=== PATIENT | female | born 2005 | race Caucasian/White ===

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

== ENCOUNTER → 2023-01-21 09:32 | Outpatient (CLI) | payer OTHER, SELFPAY ==
--- NOTE | ~2023-01-21 | US_ITS ---
US breast LT complete DATE: 01/21/2023 10:04 INDICATION: Left breast lump for 1.5 months TECHNIQUE: Real-time imaging of the complete left breast including all 4 quadrants and subareolar are as was performed. COMPARISON: None FINDINGS: No suspicious mass or shadowing is detected. No cyst is identified. IMPRESSION: BI-RADS Category 1: Negative Reviewed, dictated and finalized at [facility]. Reviewed, dictated and finalized at location [facility]. LOGIST
== END ==
PROVIDERS: PCP Nurse Practitioner Obstetrics & Gynecology; Visit Provider Nurse Practitioner Obstetrics & Gynecology
DX: N63.20 Unspecified lump in the left breast, unspecified quadrant (principal)
CPT/HCPCS: 76641

== ENCOUNTER 2024-11-22 12:59 | Emergency (ER) | payer OTHER, SELFPAY ==
[2024-11-22 13:02] VITALS: BP 122/61; PULSE 102; RESP 24; TEMP 36.6; O2SAT 100
--- NOTE | 2024-11-22 13:59 | PC.NURSE ---
Patient ambulated out of department with steady gate due to wait time.
--- OUTSIDE RECORDS SUMMARY | 2024-11-29 10:29 | XMS_ITS | Data Portability ---
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 Plan of Treatment Reminders Order Date Submit Date Provider Last Modified By Organization Details Last Modified Time Details Appointments None recorded . Lab CMP, serum or plasma 2021 [facility], [address] [place] [address], [facility] [address], [place], [address], 07:37:51 CBC w/ auto diff 2021 [facility], [address] [place] [address], [facility] [address], [place], [address], 07:37:52 amylase + lipase, serum 2021 [facility], [address] [place] [address], [facility] [address], [place], [address], 07:37:53 hepatic function panel, serum 2021 [facility], [address] [place] [address], [address], [place], [address], 07:37:52 rapid strep group A, throat 12/21/ 2022 12/21/2 022 KENDR[facility] In-Office Order, Internal Use Only DO Not Attach Compendium DO Not Attach Compendium, Do Not Delete/merge, [id number] 2 16:57:18 rapid strep group A, throat 2022 023 [facility] Order, Internal Use Only DO Not Attach Compendium DO Not Attach Compendium, Do Not Delete/merge, [id number] 3 16:07:54 HbA1c (hemoglo bin A1c), blood 2023 024 [facility], [address] [facility], [address], [place], [address], 4 09:14:12 TSH, ultra-se nsitive, serum 2023 024 [facility], [address], [address], [place], [address], 4 09:14:11 CMP, serum or plasma 2023 024 [facility], [address], [address], [place], [address], 4 09:14:09 lipid panel, serum 2023 024 [facility], [address], [address], [place], [address], 4 09:14:08 CBC 2023 024 [facility], [address], [address], [place], [address], 4 09:14:13 Referral plastic surgeon referral 2022 023 KENDRA Haley MD, [address] [facility] , [address], [place], [address], 3 14:51:50 Procedures None recorded . Surgeries None recorded . Imaging None recorded . Medication Orders amoxicil aminata 500 mg capsule [address] [facility][id number], [address] [place], [place], [id number], 14:09:33 amoxicil aminata 500 [address] capsule [address] [facility][id number], [address] [place], [place], [id number], 14:09:33 Patient TargetsNo targets recorded. Patient Instructions Encounter Date Encounter Id Patient Instructions Last Modified By Organization Details Last Modified Time 08/31/2022 [id number] abdominal pain: care [facility] Not available 08/31/2022 15:43:21 11/11/2022 [id number] strep throat: care instructions [facility] Not available 11/11/2022 16:34:05 06/04/2023 [id number] strep throat: care [facility] Not available 06/04/2023 16:07:54 09/13/2024 [id number] learning about vaping Not available 09/13/2024 14:34:05 Increase intake of fresh fruits,?? and vegetables. Avoid packaged foods and fast foods. ?? Follow a low salt diet, drink at least 8-10 8oz glasses of water a day, exercise most days of the week. Take all medications as prescribed. Keep appointments with PCP and all specialists. Not available 09/13/2024 14:33:06 dwp labs needed, plan pending results Not available 09/13/2024 14:33:13 Reason for Referral Plastic Surgeon Referral for Ear-lobe keloid Referring Physician: Drew Reilly, Pediatric Medicine, Encounter Date: 01/01/2023 Results Created Date Observation Date Name Description Value Unit Range Abnormal Flag Note LastModifiedBy Organization Detail LastModifiedTime 09/03/2009/04/2022 COMP. METAB OLIC PANEL (14) glucose 88 mg/dL 70-99 Ple ase note refer ence inter bryan royal e Not Available [facility] ([facility]) [address] [facility], [place], [address], 09/04/2022 07:37:51 09/03/20 22 09/04/2022 COMP. METAB OLIC PANEL (14) BUN 9 mg/dL 6-20 Not Available [facility] ([facility]) [address] [facility], [place], [address], 09/04/2022 07:37:51 09/03/20 22 09/04/2022 COMP. METAB OLIC PANEL (14) creatinine 0.67 mg/dL 0.57-1 .00 Not Available [facility] ([facility]) [address] [facility] [place], [address], 09/04/2022 07:37:51 09/03/20 22 09/04/2022 COMP. METAB OLIC PANEL (14) BUN/creatini ne ratio 13 9-23 Not Available [facility] ([facility]) [address] [facility], [place], [address], 09/04/2022 07:37:51 09/03/20 22 09/04/2022 COMP. METAB OLIC PANEL (14) sodium 139 mmol/ L 134-14 4 Not Available [facility] ([facility]) [address] [facility], [place], [address], 09/04/2022 07:37:51 09/03/20 22 09/04/2022 COMP. METAB OLIC PANEL (14) potassium 3.8 mmol/ L 3.5-5. 2 Not Available [facility] ([facility]) [address] [facility] [place], [address], 09/04/2022 07:37:51 09/03/20 22 09/04/2022 COMP. METAB OLIC PANEL (14) chloride 100 mmol/ L 96-106 Not Available [facility] ([facility]) [address] [facility] [place], [address], 09/04/2022 07:37:51 09/03/20 09/04/2022 COMP. METAB OLIC PANEL (14) carbon dioxide, total 24 mmol/ L 20-29 Not Available [facility] ([facility]) [address] [facility], [place], [address], 09/04/2022 07:37:51 09/03/20 22 09/04/2022 COMP. METAB OLIC PANEL (14) calcium 10.1 mg/dL 8.7-10 .2 Not Available [facility] ([facility]) [address] [facility], [place], [address], 09/04/2022 07:37:51 09/03/20 22 09/04/2022 COMP. METAB OLIC PANEL (14) protein, total 7.7 g/dL 6.0-8. 5 Not Available [facility] ([facility]) [address] [facility], [place], [address], 09/04/2022 07:37:51 09/03/20 22 09/04/2022 COMP. METAB OLIC PANEL (14) albumin 5.1 g/dL 3.9-5. 0 above high normal Not Available [facility] ([facility]) [address] [facility], [place], [address], 09/04/2022 07:37:51 09/03/20 22 09/04/2022 COMP. METAB OLIC PANEL (14) globulin, total 2.6 g/dL 1.5-4. 5 Not Available [facility] ([facility]) [address] [facility], [place], [address], 09/04/2022 07:37:51 09/03/20 22 09/04/2022 COMP. METAB OLIC PANEL (14) A/G ratio 2.0 1.2-2. 2 Not Available [facility] ([facility]) [address] [facility], [place], [address], 09/04/2022 07:37:51 09/03/20 22 09/04/2022 COMP. METAB OLIC PANEL (14) bilirubin, total 0.9 mg/dL 0.0-1. 2 Not Available [facility] ([facility]) [address] [place], [address], 09/04/2022 07:37:51 09/03/20 22 09/04/2022 COMP. METAB OLIC PANEL (14) alkaline phosphatase 113 IU/L 42-106 above high normal Not Available [facility] ([facility]) [address] [place], [address], 09/04/2022 07:37:51 09/03/20 22 09/04/2022 COMP. METAB OLIC PANEL (14) AST (SGOT) 21 IU/L 0-40 Not Available [facility] ([facility]) [address] [place], [address], 09/04/2022 07:37:51 09/03/20 22 09/04/2022 COMP. METAB OLIC PANEL (14) ALT (SGPT) 26 IU/L 0-32 Not Available [facility] ([facility]) [address] [place], [address], 09/04/2022 07:37:51 09/03/20 22 09/04/2022 HEPAT IC FUNCT ION PANEL (7) bilirubin, direct 0.29 mg/dL 0.00-0 .40 Not Available [facility] ([facility]) [address] [place], [address], 09/04/2022 07:37:52 09/03/20 22 09/04/2022 CBC WITH DIFFE RENTI AL/PL ATELE T WBC 6.8 x10e3 /uL 3.4-10 .8 Not Available [facility] ([facility]) [address] [place], [address], 09/04/2022 07:37:52 09/03/20 22 09/04/2022 CBC WITH DIFFE RENTI AL/PL ATELE T RBC 5.26 x10e6 /uL 3.77-5 .28 Not Available [facility] ([facility]) [address] [facility] [address], [place], [address], 09/04/2022 07:37:52 09/03/2009/04/2022 CBC WITH DIFFE RENTI AL/PL ATELE T hemoglobin 15.7 g/dL 11.1-1 5.9 Not Available [facility] ([facility]) [address] [facility] [address], [place], [address], 09/04/2022 07:37:52 09/03/2009/04/2022 CBC WITH DIFFE RENTI AL/PL ATELE T hematocrit 44.8 % 34.0-4 6.6 Not Available [facility] ([facility]) [address] [facility], [place], [address], 09/04/2022 07:37:52 09/03/2009/04/2022 CBC WITH DIFFE RENTI AL/PL ATELE T MCV 85 fL 79-97 Not Available [facility] ([facility]) [address] [place], [address], 09/04/2022 07:37:52 09/03/2009/04/2022 CBC WITH DIFFE RENTI AL/PL ATELE T MCH 29.8 pg 26.6-3 3.0 Not Available [facility] ([facility]) [address] [facility], [place], [address], 09/04/2022 07:37:52 09/03/2009/04/2022 CBC WITH DIFFE RENTI AL/PL ATELE T MCHC 35.0 g/dL 31.5-3 5.7 Not Available [facility] ([facility]) [address] [place], [address], 09/04/2022 07:37:52 09/03/20 22 09/04/2022 CBC WITH DIFFE RENTI AL/PL ATELE T RDW 12.5 % 11.7-1 5.4 Not Available [facility] ([facility]) [address] [facility], [place], [address], 09/04/2022 07:37:52 09/03/20 22 09/04/2022 CBC WITH DIFFE RENTI AL/PL ATELE T platelets 267 x10e3 /uL 150-45 0 Not Available [facility] ([facility]) [address] [facility], [place], [address], 09/04/2022 07:37:52 09/03/2009/04/2022 CBC WITH DIFFE RENTI AL/PL ATELE T neutrophils 74 % notest ab. Not Available [facility] ([facility]) [address] [facility], [place], [address], 09/04/2022 07:37:52 09/03/20 22 09/04/2022 CBC WITH DIFFE RENTI AL/PL ATELE T lymphs 20 % notest ab. Not Available [facility] ([facility]) [address] [facility], [place], [address], 09/04/2022 07:37:52 09/03/20 22 09/04/2022 CBC WITH DIFFE RENTI AL/PL ATELE T monocytes 6 % notest ab. Not Available [facility] ([facility]) [address] [place], [address], 09/04/2022 07:37:52 09/03/2009/04/2022 CBC WITH DIFFE RENTI AL/PL ATELE T eos 0 % notest ab. Not Available [facility] ([facility]) [address] [place], [address], 09/04/2022 07:37:52 09/03/20 22 09/04/2022 CBC WITH DIFFE RENTI AL/PL ATELE T basos 0 % notest ab. Not Available [facility] ([facility]) [address] [place], [address], 09/04/2022 07:37:52 09/03/20 22 09/04/2022 CBC WITH DIFFE RENTI AL/PL ATELE T neutrophils (absolute) 5.0 x10e3 /uL 1.4-7. 0 Not Available [facility] ([facility]) [address] [facility], [place], [address], 09/04/2022 07:37:52 09/03/20 22 09/04/2022 CBC WITH DIFFE RENTI AL/PL ATELE T lymphs (absolute) 1.4 x10e3 /uL 0.7-3. 1 Not Available [facility] ([facility]) [address] [facility], [place], [address], 09/04/2022 07:37:52 09/03/20 22 09/04/2022 CBC WITH DIFFE RENTI AL/PL ATELE T monocytes(ab solute) 0.4 x10e3 /uL 0.1-0. 9 Not Available [facility] ([facility]) [address] [facility], [place], [address], 09/04/2022 07:37:52 09/03/20 22 09/04/2022 CBC WITH DIFFE RENTI AL/PL ATELE T eos (absolute) 0.0 x10e3 /uL 0.0-0. 4 Not Available [facility] ([facility]) [address] [facility] [address], [place], [address], 09/04/2022 07:37:52 09/03/20 22 09/04/2022 CBC WITH DIFFE RENTI AL/PL ATELE T baso (absolute) 0.0 x10e3 /uL 0.0-0. 2 Not Available [facility] ([facility]) [address] [facility], [place], [address], 09/04/2022 07:37:52 09/03/20 22 09/04/2022 CBC WITH DIFFE RENTI AL/PL ATELE T immature granulocytes 0 % notest ab. Not Available [facility] ([facility]) [address] [facility], [place], [address], 09/04/2022 07:37:52 09/03/20 22 09/04/2022 CBC WITH DIFFE RENTI AL/PL ATELE T immature grans (abs) 0.0 x10e3 /uL 0.0-0. 1 Not Available [facility] ([facility]) [address] [facility], [place], [address], 09/04/2022 07:37:52 09/03/20 22 09/04/2022 DOC+L IPASE amylase 21 U/L 31-110 below low normal Not Available [facility] ([facility]) [address] [facility], [place], [address], 09/04/2022 07:37:53 09/03/2009/04/2022 DOC+L IPASE lipase 16 U/L 14-72 Not Available [facility] ([facility]) [address] [facility], [place], [address], 09/04/2022 07:37:53 11/11/20 22 11/11/2022 rapid strep group A, throa t Strep positi ve Not Available In-Office Order Internal Use Only DO Not Attach Compendium DO Not Attach Compendium, Do Not Delete/merge, [id number] 11/11/2022 16:08:53 06/04/20 23 06/04/2023 rapid strep group A, throa t Strep positi ve Not Available In-Office Order Internal Use Only DO Not Attach Compendium DO Not Attach Compendium, Do Not Delete/merge, [id number] 06/04/2023 15:51:17 09/13/2009/14/2024 LIPID PANEL cholesterol, total 143 mg/dL 100-19 9 Not Available [facility] ([facility]) [address] [facility], [place], [address], 09/14/2024 09:14:08 10/09/14/2024 LIPID PANEL triglyceride s 48 mg/dL 0-149 Not Available [facility] ([facility]) [address] [place], [address], 09/14/2024 09:14:08 09/13/2009/14/2024 LIPID PANEL HDL cholesterol 61 mg/dL >39 Not Available [facility] ([facility]) [address] [place], [address], 09/14/2024 09:14:08 09/13/2009/14/2024 LIPID PANEL VLDL cholesterol howard 11 mg/dL 5-40 Not Available [facility] ([facility]) [address] [place], [address], 09/14/2024 09:14:08 09/13/2009/14/2024 LIPID PANEL LDL chol calc ([facility]) 71 mg/dL 0-99 Not Available [facility] ([facility]) [address] [place], [address], 09/14/2024 09:14:08 09/13/2009/14/2024 COMP. METAB OLIC PANEL (14) glucose 75 mg/dL 70-99 Not Available [facility] ([facility]) [address] [place], [address], 09/14/2024 09:14:09 09/13/2009/14/2024 COMP. METAB OLIC PANEL (14) BUN 14 mg/dL 6-20 Not Available [facility] ([facility]) [address] [place], [address], 09/14/2024 09:14:09 09/13/2009/14/2024 COMP. METAB OLIC PANEL (14) creatinine 0.73 mg/dL 0.57-1 .00 Not Available [facility] ([facility]) [address] [place], [address], 09/14/2024 09:14:09 09/13/2009/14/2024 COMP. METAB OLIC PANEL (14) eGFR 120 mL/mi n/1.7 3 >59 Not Available [facility] ([facility]) [address] [facility], [place], [address], 09/14/2024 09:14:09 09/13/2009/14/2024 COMP. METAB OLIC PANEL (14) BUN/creatini ne ratio 19 9-23 Not Available [facility] ([facility]) [address] [facility], [place], [address], 09/14/2024 09:14:09 09/13/2009/14/2024 COMP. METAB OLIC PANEL (14) sodium 139 mmol/ L 134-14 4 Not Available [facility] ([facility]) [address] [facility], [place], [address], 09/14/2024 09:14:09 09/13/2009/14/2024 COMP. METAB OLIC PANEL (14) potassium 4.1 mmol/ L 3.5-5. 2 Not Available [facility] ([facility]) [address] [facility], [place], [address], 09/14/2024 09:14:09 09/13/2009/14/2024 COMP. METAB OLIC PANEL (14) chloride 102 mmol/ L 96-106 Not Available [facility] ([facility]) [address] [facility], [place], [address], 09/14/2024 09:14:09 09/13/2009/14/2024 COMP. METAB OLIC PANEL (14) carbon dioxide, total 23 mmol/ L 20-29 Not Available [facility] ([facility]) [address] [facility], [place], [address], 09/14/2024 09:14:09 09/13/2009/14/2024 COMP. METAB OLIC PANEL (14) calcium 9.5 mg/dL 8.7-10 .2 Not Available [facility] ([facility]) [address] [facility], [place], [address], 09/14/2024 09:14:09 09/13/2009/14/2024 COMP. METAB OLIC PANEL (14) protein, total 7.4 g/dL 6.0-8. 5 Not Available [facility] ([facility]) [address] [facility], [place], [address], 09/14/2024 09:14:09 09/13/2009/14/2024 COMP. METAB OLIC PANEL (14) albumin 4.7 g/dL 4.0-5. 0 Not Available [facility] ([facility]) [address] [facility], [place], [address], 09/14/2024 09:14:09 09/13/2009/14/2024 COMP. METAB OLIC PANEL (14) globulin, total 2.7 g/dL 1.5-4. 5 Not Available [facility] ([facility]) [address] [facility], [place], [address], 09/14/2024 09:14:09 09/13/2009/14/2024 COMP. METAB OLIC PANEL (14) bilirubin, total 0.6 mg/dL 0.0-1. 2 Not Available [facility] ([facility]) [address] [facility], [place], [address], 09/14/2024 09:14:09 09/13/2009/14/2024 COMP. METAB OLIC PANEL (14) alkaline phosphatase 77 IU/L 44-121 Not Available [facility] ([facility]) [address] [facility], [place], [address], 09/14/2024 09:14:09 09/13/2009/14/2024 COMP. METAB OLIC PANEL (14) AST (SGOT) 21 IU/L 0-40 Not Available [facility] ([facility]) [address] [facility], [place], [address], 09/14/2024 09:14:09 09/13/2009/14/2024 COMP. METAB OLIC PANEL (14) ALT (SGPT) 15 IU/L 0-32 Not Available [facility] ([facility]) [address] [facility], [place], [address], 09/14/2024 09:14:09 09/13/2009/14/2024 TSH RFX ON ABNOR MAL TO FREE T4 TSH 1.270 uIU/m L 0.450- 4.500 Not Available [facility] ([facility]) [address] [facility], [place], [address], 09/14/2024 09:14:11 09/13/2009/14/2024 HEMOG LOBIN A1C hemoglobin A1C 5.1 % 4.8-5. 6 Predi abete s: 5.7 - 6.4 Diabe vanessa: >6.4 Glyce afua contr ol for adult s with diabe vanessa: <7.0 Not Available [facility] ([facility]) [address] [facility], [place], [address], 09/14/2024 09:14:12 09/13/2009/14/2024 CBC, PLATE LET, NO DIFFE RENTI AL WBC 6.6 x10e3 /uL 3.4-10 .8 Not Available [facility] ([facility]) [address] [place], [address], 09/14/2024 09:14:13 09/13/2009/14/2024 CBC, PLATE LET, NO DIFFE RENTI AL RBC 4.97 x10e6 /uL 3.77-5 .28 Not Available [facility] ([facility]) [address] [facility], [place], [address], 09/14/2024 09:14:13 09/13/2009/14/2024 CBC, PLATE LET, NO DIFFE RENTI AL hemoglobin 14.2 g/dL 11.1-1 5.9 Not Available [facility] ([facility]) [address] [facility], [place], [address], 09/14/2024 09:14:13 09/13/2009/14/2024 CBC, PLATE LET, NO DIFFE RENTI AL hematocrit 43.3 % 34.0-4 6.6 Not Available [facility] ([facility]) [address] [facility], [place], [address], 09/14/2024 09:14:13 09/13/2009/14/2024 CBC, PLATE LET, NO DIFFE RENTI AL MCV 87 fL 79-97 Not Available [facility] ([facility]) [address] [facility], [place], [address], 09/14/2024 09:14:13 09/13/2009/14/2024 CBC, PLATE LET, NO DIFFE RENTI AL MCH 28.6 pg 26.6-3 3.0 Not Available [facility] ([facility]) [address] [facility], [place], [address], 09/14/2024 09:14:13 09/13/2009/14/2024 CBC, PLATE LET, NO DIFFE RENTI AL MCHC 32.8 g/dL 31.5-3 5.7 Not Available [facility] ([facility]) [address] [facility], [place], [address], 09/14/2024 09:14:13 09/13/2009/14/2024 CBC, PLATE LET, NO DIFFE RENTI AL RDW 12.9 % 11.7-1 5.4 Not Available [facility] ([facility]) [address] [facility], [place], [address], 09/14/2024 09:14:13 09/13/2009/14/2024 CBC, PLATE LET, NO DIFFE RENTI AL platelets 292 x10e3 /uL 150-45 0 Not Available [facility] ([facility]) [address] [facility], [place], [address], 09/14/2024 09:14:13 08/30/20 22 08/30/2022 CT, abdom en + pelvi s, w/ contr ast No observ ation record ed. [place] [id number] [facility] [address], [place], [address], 08/31/2022 11:26:00 Result Notes None recorded. Problems Name Problem SNOMED Code Status Onset Date Resolution Date Notes Provider Name and Address Organization Details Recorded Time Acute viral pharyngitis Active Drew Reilly MD Attn: Accounting,[address] [facility], [place], [address], [facility] 6 12:14:04 Problem Notes None recorded. Procedures Surgical History Date Name Laterality Status Provider Name and Address Organization Details Recorded Time excision of keloid completed BRITTANEY Reyna ID - [facility] 09/13/2024 14:16:22 Imaging Results Imaging Date Name Status LastModified by Organiz ation Details LastModified Time 08/30/2022 CT, abdomen + pelvis, w/ contrast completed [address], [place], [address], 08/31/2022 11:26:00 Procedure Notes None recorded. Medical Equipment None Reported. Allergies No known drug allergies Medications Name Sig Start Date Stop Date Status Note LastModified by Organization Details LastModified Time amoxicillin 500 mg capsule TAKE 1 CAPSULE BY MOUTH THREE TIMES DAILY FOR 10 DAYS 09/13 completed Not Available Not Available Not Available prednisone 10 mg tablet 05/20 completed Not Available Not Available Not Available azithromyci n 250 mg tablet Take 1 tablet every day by oral route. 01/31 completed Not Available Not Available Not Available fluconazole 150 mg tablet TAKE 1 TABLET BY MOUTH EVERY DAY FOR 1 DAY DIRECTED 09/13 completed Not Available Not Available Not Available valacyclovi r 1 gram tablet TAKE 1 TABLET BY MOUTH EVERY 12 HOURS FOR 7 DAYS 09/13 completed Not Available Not Available Not Available metronidazo le 0.75 % (37.5 mg/5 gram) vaginal gel INSERT ONE APPLICATO RFUL VAGINALLY AT BEDTIME FOR 5 DAYS 08/31 completed Not Available Not Available Not Available desmopressi n 0.2 mg tablet Take 2 tablets every day by oral route at bedtime. 05/20 completed Not Available Not Available Not Available metronidazo le 500 mg tablet TAKE 1 TABLET BY MOUTH TWICE DAILY FOR 7 DAYS 09/13 completed Not Available Not Available Not Available Tamiflu 75 mg capsule Take 1 capsule twice a day by oral route for 5 days. 03/27 completed Not Available Not Available Not Available sulfamethox azole 800 mg-trimetho prim 160 mg tablet Take 1 tablet twice a day by oral route for 7 days. 12/20 completed Not Available Not Available Not Available Prozac 20 mg capsule Take 1 capsule every day by oral route. 11/11 completed Not Available Not Available Not Available sertraline 25 mg tablet TAKE 1 TABLET BY MOUTH DAILY 08/31 completed Not Available Not Available Not Available amoxicillin 250 mg capsule 08/05 completed Not Available Not Available Not Available hydroxyzine HCl 25 mg tablet TK 1-2 TS PO HS PRN 08/31 completed Not Available Not Available Not Available amoxicillin 400 mg/5 mL oral suspension Take 6 mL 3 times a day by oral route for 10 days. 10/12 completed Not Available Not Available Not Available ergocalcife rol (vitamin D2) 1,250 mcg (50,000 unit) capsule TAKE 1 CAPSULE BY MOUTH EVERY WEEK 08/31 completed Not Available Not Available Not Available azithromyci n 200 mg/5 mL oral suspension 05/20 completed Not Available Not Available Not Available bromphenira mine-pseudo ephedrine-D M 2 mg-30 mg-10 mg/5 mL oral syrup 05/20 completed Not Available Not Available Not Available fluticasone propionate 50 mcg/actuati on nasal spray,suspe nsion Grethel 1 spray every day by intranasa l route. 08/16 completed Not Available Not Available Not Available amoxicillin 875 mg-potassiu m clavulanate 125 mg tablet Take 1 tablet every 12 hours by oral route for 10 days. 08/16 completed Not Available Not Available Not Available nitrofurant oin monohydrate /macrocryst als 100 mg capsule TAKE 1 CAPSULE BY MOUTH EVERY 12 HOURS WITH MEALS FOR 7 DAYS 09/13 completed Not Available Not Available Not Available aripiprazol e 2 mg tablet TAKE 1 TABLET BY MOUTH EVERY MORNING 08/31 completed Not Available Not Available Not Available Vitals Date Recorded Body temperature Heart rate Respiratory rate Body height Body mass index (BMI) Body mass index (BMI) Percentile per age and sex Body weight Systolic blood pressure Diastolic blood pressure Provider Name and Address Organization Details Last Updated DateTime 2 98.4 [degF] 120 /min 16 /min 171.45 cm 20.7 kg/m2 38 % 87242.3 8 g 110 mm[Hg] 70 mm[Hg] Sonal Sutton [place] - [facility] 2 15:20:57 Date Recorded Body height Body mass index (BMI) Percentile per age and sex Body mass index (BMI) Body weight Heart rate Respiratory rate Body temperature Systolic blood pressure Diastolic blood pressure Provider Name and Address Organization Details Last Updated DateTime 2 171.45 cm 47 % 21.4 kg/m2 34482.3 4 g 122 /min 20 /min 99.5 [degF] 114 mm[Hg] 76 mm[Hg] Dinorah Perez [place] - [facility] 2 16:10:36 Date Recorded Body height Heart rate Respiratory rate Body temperature Body mass index (BMI) Percentile per age and sex Body mass index (BMI) Body weight Systolic blood pressure Diastolic blood pressure Provider Name and Address Organization Details Last Updated DateTime 3 171.45 cm 92 /min 16 /min 100.2 [degF] 35 % 20.5 kg/m2 45015.7 9 g 120 mm[Hg] 62 mm[Hg] Antionette hdz [place] - [facility] 3 10:11:19 Date Recorded Body height Heart rate Respiratory rate Body temperature Body mass index (BMI) Body mass index (BMI) Percentile per age and sex Body weight Systolic blood pressure Diastolic blood pressure Provider Name and Address Organization Details Last Updated DateTime 3 171.45 cm 96 /min 20 /min 100 [degF] 20.3 kg/m2 32 % 75711.4 g 116 mm[Hg] 60 mm[Hg] Antionette hdz MA [facility] 3 15:53:44 Date Recorded Body height Body mass index (BMI) Body weight Oxygen saturation Oxygen saturation in Arterial blood by Pulse oximetry Respiratory rate Body temperature Heart rate Systolic blood pressure Diastolic blood pressure Provider Name and Address Organization Details Last Updated DateTime 4 172.72 cm 20.8 kg/m2 97132.1 5 g 98 % 98 % 16 /min 98 [degF] 80 /min 106 mm[Hg] 64 mm[Hg] BRITTANEY Reyna [place] - [facility] 4 14:18:24 Social History Question Answer Notes LastModified by Organizat ion Details LastModified Time Tobacco Smoking Status Current Every Day Smoker VAPE ONLY/ NO cigarettes. Sonal Sutton MA [facility], [place] - [facility] 11/11/2022 16:07:34 Do You Have An Advance Directive? No Information not available 08/31/2022 What Is Your Level Of Alcohol Consumption? Occasional Information not available 09/13/2024 Do You Wear A Helmet When Biking? No Information not available 08/31/2022 Are You Blind Or Do You Have Difficulty Seeing? No Information not available 09/13/2024 Are You Or Have You Been Involved With Bullying? No [email or web address] Information not available 07/31/2015 What Is Your Level Of Caffeine Consumption? Heavy Information not available 09/13/2024 In The 14 Days Before Symptom Onset, Have You Had Close Contact With A Laboratory-confi rmed COVID-19 While That Case Was Ill? No Information not available 08/31/2022 In The 14 Days Before Symptom Onset, Have You Had Close Contact With A Person Who Is Under Investigation For COVID-19 While That Person Was Ill? No Information not available 08/31/2022 Have You Been To An Area Known To Be High Risk For COVID-19? No Information not available 08/31/2022 Are You Currently Employed? Yes Information not available 09/13/2024 Are You Deaf Or Do You Have Serious Difficulty Hearing? No Information not available 09/13/2024 What Type Of Diet Are You Following? REGULAR [email or web address] Information not available 07/31/2015 Do You Or Have You Ever Used E-cigarettes Or Vape? Current User Of Electronic Cigarettes Information not available 11/11/2022 What Is The Highest Grade Or Level Of School You Have Completed Or The Highest Degree You Have Received? [id number] Information not available 08/31/2022 What Is Your Occupation? [employer] Information not available 09/13/2024 Have There Been Any Changes To Your Family Or Social Situation? Yes See Below Information not available 07/31/2015 Are There Any Guns Present In Your Home? No [email or web address] Information not available 07/31/2015 What Is Your Home Situation? Father Step Mom [email or web address] Information not available 06/04/2023 Do You Use Insect Repellent Routinely? Yes [email or web address] Information not available 07/31/2015 Car Seat Type Or Seat Belt? Seat Belt [email or web address] Information not available 07/31/2015 Parent Involvement? Both Parents Involved 50-50 [email or web address] Information not available 07/31/2015 What Was The Date Of Your Most Recent Tobacco Screening? 09/13/2024 Information not available 09/13/2024 How Many Children Do You Have? 0 Information not available 09/13/2024 What Is Your Parents' Marital Status? [email or web address] Information not available 07/31/2015 Do You Have Any Pets? No Information not available 11/11/2022 What Is Your Relationship Status? Single Information not available 09/13/2024 Do You Use Your Seat Belt Or Car Seat Routinely? Yes Information not available 08/31/2022 Are You Sexually Active? Yes Information not available 09/13/2024 Do You Have Any Siblings? 2 Brother 1 Sister - , Brain Tumor [email or web address] Information not available 07/31/2015 Do You Have Smoke And Carbon Monoxide Detectors In Your Home? Yes [email or web address] Information not available 07/31/2015 Are You Passively Exposed To Smoke? Yes [email or web address] Information not available 07/31/2015 Do You Or Have You Ever Used Smokeless Tobacco? Never Used Smokeless Tobacco Information not available 09/13/2024 Do You Participate In Social Media? Yes Information not available 08/31/2022 What Types Of Sporting Activities Do You Participate In? Adam sharma Information not available 06/04/2023 Do You Feel Stressed (tense, Restless, Nervous, Or Anxious, Or Unable To Sleep At Night)? [id number] Information not available 09/13/2024 Do You Use Any Illicit Or Recreational Drugs? Yes Kiara Information not available 09/13/2024 Do You Use Sunscreen Routinely? Yes [email or web address] Information not available 07/31/2015 Has Tobacco Cessation Counseling Been Provided? Yes Information not available 09/13/2024 On What Date Was Tobacco Cessation Counseling Provided? 09/13/2024 Information not available 09/13/2024 Do You Or Have You Ever Used Any Other Forms Of Tobacco Or Nicotine? Yes Information not available 11/11/2022 How Many Years Have You Used E-cigarettes Or Vape? 7 09/13/24 Information not available 09/13/2024 Sex: Female Functional Status Question Answer Note LastModified by Organization D etails LastModified Time Are you able to care for yourself? Yes Information not available 09/13/2024 What is your exercise level? Moderate Information not available 07/31/2015 Mental Status None recorded. Family History Relationship Description Onset Age of this Age Resolved Age Notes LastModified by Organization Details LastModified Time Sister Suspected brain tumor deceas ed Not available 07/16/2016 12:07:25 Paternal Grandfather Hypercholest erolemia [email or web address] Not available 08/23 14:11:41 Paternal Grandfather Malignant tumor of prostate [email or web address] Not available 08/23 14:11:50 Medical History Condition Response Coronary Artery Disease N Atrial Fibrillation N High Blood Pressure N Blood Diseases N Depression Y COPD N Blood Clots N Developmental or Behavioral Disorders N Premature N Anxiety Disorder Y Muscle, Joint, or Bone Problems N Vision or Eye Problems N Arthritis N Head Injury/Concussion N Acid Reflux (GERD) N Cancer N Stroke N ADHD N Bladder or Kidney Problems N High Cholesterol N Liver Disease N Schizophrenia N Headaches N Ear or Hearing Problems N Thyroid Problems N Kidney or Bladder Problems N GI Problems N Have you had a mammogram in the last yea r? N Eating Disorder N Skin Problems N Anemia N Constipation N Heart Attack (NM) N Diabetes N Bedwetting Y Heart Problems/Murmur N Seizures/Epilepsy N Have you had a colonoscopy in the last 1 0 years? N Asthma N Allergies Y Substance Abuse N Hepatitis N Chicken Pox N Heart Failure N Autism Spectrum Disorder (ASD) N Osteoporosis N Gynecological History Statement/Question Response Flow Moderate Date of LMP 09/04/2024 Frequency of Cycle (Q days) 5 Menses Monthly N Date of Last Pap Smear Duration of Flow (days) 5 Age at Menarche 11 Current Control Method None LMP Definite Obstetrics History GPAL:G 1 P 0 0 1 0 Type Value Induced 1 Total 1 Immunizations Vaccine Type Date Status Note Provider Nam e and Address Organization Details Recorded Time varicella 9 completed Jillian Doyle APN, FNP-C Attn: [facility],[address] [place], [place], [address] [place] [address], [facility] [place] 09/13/2024 14:21:40 polio, unspecified formulation 8 completed Jillian Doyle APN, FNP-C Attn: [facility] [place], [place], [address] [place] [address], [facility] [place] 09/13/2024 14:21:40 influenza, split (incl. purified surface antigen) 3 completed Jillian Doyle APN, FNP-C Attn: [facility] [place], [place], [address] [place] [address] 09/13/2024 14:21:40 DTaP, unspecified formulation 4 completed Jillian Doyle APN, FNP-C Attn: [facility] [place], [address], [place] [facility] 09/13/2024 14:21:40 DTaP, unspecified formulation 3 completed Jillian Doyle APN, [employer]-C Attn: [facility]ing,[address] [facility], [place], [address], [place] [facility] 09/13/2024 14:21:40 MMR 4 completed Sonal [place], [place] [facility] 07/31/2015 12:29:39 pneumococcal conjugate PCV 7 4 completed Sonal [place] [facility] 07/31/2015 12:29:39 Hib, unspecified formulation 3 completed Sonal [place] [facility] 07/31/2015 12:29:39 DTaP 3 completed Sonal [place] [facility] 07/31/2015 12:29:39 Hib, unspecified formulation 4 completed Sonal [place] [facility] 07/31/2015 12:29:39 DTaP 3 completed Sonal [place] [facility] 07/31/2015 12:29:39 varicella 4 completed Sonal [place] [facility] 07/31/2015 12:29:39 DTaP 3 completed Sonal [place] [facility] 07/31/2015 12:29:39 IPV 3 completed S[place] [facility] 07/31/2015 12:29:39 pneumococcal conjugate PCV 7 3 completed S[place] [facility] 07/31/2015 12:29:39 Hib, unspecified formulation 3 completed S[place] [facility] 07/31/2015 12:29:39 DTaP 8 completed [place] [facility] 07/31/2015 12:29:39 influenza, unspecified formulation 3 completed S[place] [facility] 07/31/2015 12:29:39 pneumococcal conjugate PCV 7 3 completed [place] [facility] 07/31/2015 12:29:39 pneumococcal conjugate PCV 7 3 completed S[place] [facility] 07/31/2015 12:29:39 IPV 3 completed [place] [facility] 07/31/2015 12:29:39 IPV 4 completed [place] [facility] 07/31/2015 12:29:39 influenza, unspecified formulation 3 completed [place] [facility] 07/31/2015 12:29:39 Hib-Hep B 3 completed [place] [facility] 07/31/2015 12:29:39 varicella 8 completed Jillian Doyle APN, FNP-C Attn: [facility],[address] [place], [address], [place] [facility] 09/13/2024 14:21:40 MMR 8 completed Jillian Doyle APN, FNP-Angela Attn: [facility] [place], [address], [place] [facility] 09/13/2024 14:21:40 Past Encounters Encounter ID Performer Location Encounter Start Date Encounter Closed Date Diagnosis/Indication Diagnosis SNOMED-CT Code Diagnosis ICD10 Code Diagnosis Note [id number] MARILYN Vasquezhalto (Peds) [address] [place] [address] 07/31/2015 16:18:29 07/31/2015 17:14:55 Well child [id number] Discussed routine assistant child care teacher discussed safety and school performanc e discussed healthy weight with diet and exercise Not up to date with immunizations 586337811 Parents decline immunizati ons. [id number] MD Ernestina Beavers (Peds) [address] [facility] [place] [address] 07/16/2016 11:49:41 07/16/2016 12:40:16 Acute viral pharyngitis 869187533 J02.9 rest, Tylenol prn, humidifier , etc [id number] [facility] [address] [place] [address] 10/19/2016 16:29:15 10/20/2016 17:08:36 Acute sinusitis 31620642 J01.90 [id number] [facility] [address] [place] [address] 10/29/2016 10:37:20 10/30/2016 15:51:34 Lymphadenitis 08005147 I88.9 ongoing lympadenop athy now with pain. will check cbc, bartonella (put should be covered with augmentin) , and ebv. will change abx regimen to zithromax. to cover lymphadeni tis and sinusitis Acute sinusitis 87934100 J01.90 [id number] MD Sara Beavershalto (Peds) [address] [place] [address] 03/16/2017 10:54:59 03/17/2017 12:13:25 Upper respiratory infection 33535954 J06.9 rest, tylenol prn, humidifier , vitamin c, etc. if symptoms continue obtain cbc and monospot. Not up to date with immunizations 780459349 Z28.3 Parents decline immunizati ons. reviewed with mother. daughter had a h/o cranial tumor which mother is concerned may have been related. [id number] [facility] [address] [place] [address] 05/20/2017 14:07:21 05/24/2017 11:28:34 Well child 906883997 Z00.129 Discussed routine assistant child care teacher discussed safety and school performanc e discussed healthy weight with diet and exercise Not up to date with immunizations 343935994 Z28.3 Parents decline immunizati ons. reviewed with mother. daughter had a h/o cranial tumor which mother is concerned may have been related. [id number] MD Ernestina Beavers (Peds) [address] [facility] [place] [address] 08/02/2017 14:09:59 08/03/2017 12:06:50 Acute tonsillitis 81367058 J03.90 no sharing food or drink. swap out toothbrush es. [id number] [facility] [address] [facility] [place] [address] 10/12/2017 15:07:24 10/20/2017 15:32:32 Parental concern about child 246755610 Z63.8 mother concerned about possible LAD. normal lymph nodes that swell with illness. will check CBC to help alleviate parental fears. [id number] [facility] [address] [facility] [place] [address] 11/29/2017 16:02:24 11/30/2017 09:17:17 Acute tonsillitis 06612305 J03.90 no sharing food or drink. swap out toothbrush es. [id number] [facility] [address] [place] [address] 08/05/2018 12:03:19 08/08/2018 16:45:09 Depressive disorder 42497640 F32.9 discussed with pt and mother importance of counseling . discussed possible side effects of anti dep. f/u 1 month [id number] [facility] [address] [facility] [place] [address] 11/11/2018 11:56:51 11/11/2018 13:29:39 Cellulitis 138023821 L03.90 [id number] [facility] [address] [facility] [place] [address] 12/20/2018 15:10:50 12/20/2018 17:17:03 Upper respiratory infection 28003896 J06.9 rest, tylenol prn, humidifier , vitamin c, etc. [id number] [facility] [address] [place] [address] 12/28/2018 16:20:45 12/29/2018 13:40:16 Major depressive disorder 875010132 F32.9 d/w mother and pt need to start anitdep and resume counseling . will contact [facility] to see what treatment options are available. encouraged mother to have bio father contact us to discuss his concernes with medication . addendum: discussed with [facility]. they are currently not accepting new pt. recommende d inpat at [facility] or [facility] or start outpt at [facility] or elsewhere. [id number] MD [facility] [address] [place] [address] 01/31/2019 16:10:03 02/01/2019 12:43:57 Upper respiratory infection 85302473 J06.9 rest, tylenol prn, humidifier , vitamin c, etc. Influenza 8689786 J11.1 [id number] MD Ernestina Beavers (Peds) [address] [facility] [place] [address] 03/27/2019 13:58:37 03/28/2019 12:10:25 Acute sinusitis 74360980 J01.90 [id number] [facility] [address] [facility] [place] [address] 08/16/2019 14:33:28 08/17/2019 12:37:30 Upper respiratory infection 29198099 J06.9 rest, tylenol prn, humidifier , vitamin c, etc. Diet education 86703120 Z71.3 Exercises education, guidance, and counseling 301602090 Z71.82 [id number] MD Sara Beavershalto (Peds) [address] [place] [address] 09/26/2019 14:50:12 09/27/2019 14:13:21 Injury of toe 267328030 S99.921A injury to right fifth digit. swollen and slightly erythemato us. obtain film to r/o fracture. [id number] MD Ernestina Beavers (Peds) [address] [place] [address] 07/01/2020 13:01:53 07/01/2020 21:26:23 Injury of toe 825354423 S99.921A injury to right fifth digit. swollen and slightly erythemato us. obtain film to r/o fracture. tylenol prn pain [id number] [facility] [address] [place] [address] 11/21/2020 10:45:54 11/21/2020 15:41:13 Parental concern about child 664160796 Z63.8 reassuranc e. labs wnl. [id number] MD [facility] [address] [facility] [place] [address] 08/31/2022 15:11:05 09/01/2022 12:53:19 Abdominal pain 30321434 R10.9 likely due to viral infection. + deleon's sign. will repeat labs this weak and see if WBC and lft's are going down. if not then will refer to GI. pt states she is feeling better, pain is subsiding and appetite has returned. [id number] [facility] [address] [place] [address] 11/11/2022 16:01:07 11/12/2022 13:26:39 Streptococcal sore throat 49471339 J02.0 no shring food or drink. switch out toothbrush . 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 will refer to plastic to remove piercing and discuss tx options like steroids vs removal. [id number] MD [facility] [address] [place] [address] 06/04/2023 15:42:02 06/07/2023 17:34:41 Streptococcal sore throat 39235158 J02.0 no sharing food or drink. switch out toothbrush . 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 B37.32 advised gyne Electronic cigarette user 684502724 Z72.89 cessation advised Depression screening 171 996062 Z13.31 depression screening positive-r epeat at followup Health Concerns Section Related Observation LastModified by Organization Detai ls LastModified Time None Recorded Concern Status LastModified by Organization Details LastModified Time None Recorded Advance Directives Directive N: Payers Encounter Date Sequence Insurance Name Policy Number Policy Brown Covered Member ID Brown Member ID Guarantor Name 08/31/2022 1 [facility] [id number] Kevin Penny [id number] Kevin Penny 11/11/2022 1 [facility] [id number] Kevin Penny [id number] Keivn Penny 01/01/2023 1 [facility] [id number] Kevin Penny [id number] Kevin Penny 06/04/2023 1 [facility] [id number] Kevin Penny [id number] Kevin Penny 09/13/2024 1 [facility] [address] [facility] [id number] Nuris Hedger [id number] Kevin Penny Notes Date Note Type Note Provider Name a in Address Organization Details Recorded Time 08/31/2022 text/html ED/fu-- white blood cell/ liver enzymes---ED reported to parents that patient had a liver of a 50 year old. Patient was taken to [facility]- for vomiting and cold symptoms- no fever. Labs are in chart. pt states over the past year or two she will have morning emesis maybe once a month because she will stand, get dizzy and have emesis.. more recently pt had an extended bout of emesis yesterday at 3 am. last emesis was this am at 6. + diarrhea. no camping in the past month. No blood in BM. no eating at sandwich shops or [employer]. pt did eat some 4 day pot roast. no fever. no fhx of liver disease. Ed showed ct with hepatomegaly. elevated wbc count. negative hepatisi studies, negative flu/covid. alt/ast in the 50's Drew Reilly MD Attn: [facility],[address] [facility], [place], [address], [facility] 08/31/2022 16:05:32 11/11/2022 text/html c/o ST with ROCK's and abd pain. No v/d. No fever. No known sick contacts. Drew Reilly MD Attn: [facility],[address] [place], [address], [facility] 11/11/2022 16:34:43 01/01/2023 text/html LT ear cartilage piercing with a mass, pt states it has been like that for about 2-3 yrs. not painful but slowly getting bigger Drew Reilly MD Attn: [facility],[address] [place], [address], [place] [facility] 01/01/2023 10:33:24 06/04/2023 text/html c/o ST the past few days with body aches and headaches. tmax 100. mild rhinorrhea. no cough. nausea. Drew Reilly MD Attn: [facility],[address] [place], [address], [place] [facility] 06/04/2023 16:08:05 09/13/2024 text/html last pcp was peds. Wants tested for DM do to reoccurring yeast infections. sees gyno. NO family hx Jillian Doyle APN, [employer]-C Attn: [facility],[address] [facility], [place], [address], [place] [facility] 09/15/2024 09:58:44 OBGyn Episode Ob Episode Information Episode Created Date Number of Fetuses Patient Bloodtype Patient rh Status Prepregnancy Weight lbs Domestic Partner Domestic Partner Phone Father Name Dental Hygiene Instructor Status 09/13/20 24 1 CLOSED Fetus Data First Name Last Name Admitted to NICU Weight (g) Sex Living Outcome Pediatric Complications Fetus ID Race Codes Race Delivery Type , Induced [id number] Mychal Calculation Initial Mychal Date Initial Exam Date Initial Exam Provider Initial Ultrasound Date Last Menstrual Period Date Ultra Sound Weeks Gestation 0 Eighteen To Twenty Week Mychal Update Ultra Sound Date Fundal Height At Umbil Quickening Date Ultra Sound Latest Weeks Gestation Final Mychal Confirmed By Final Mychal Confirmed Date Final Mychal Date Ultra Sound Latest Days Gestation 0 0 Menstrual History Last Menstrual Date Menses Monthly On Bcp Conception Prior Menses Frequency Hcg Plus Date Menarche Onset Age Delivery Information Delivery Date Delivery Type Labor Anesthesia Weeks Gestation Incision Type Labor Labor Length Hrs Delivered By Post Complications Tubal Sterilization Discharge Date Comments 3 Discharge Information Feeding Method Contraceptive Method Maternal HG B and HCT Levels
--- OUTSIDE RECORDS SUMMARY | 2024-11-29 10:29 | XMS_ITS | Continuity of Care Document ---
Author Organization [facility] ([facility]) Address [address] [place] [address] Care Team Providers Care Quality Technician Name Role Phone JILLIAN DOYLE Primary Care Provider [phone] Assessment No assessment recorded. Plan of Treatment Reminders Order Date Submit Date Provider Last Modified By Organization Details Last Modified Time Details Appointments None recorded . Lab HbA1c (hemoglo bin A1c), blood 024 09/13/20 [facility], [address] [facility], [address], [place], [address], 4 09:14:12 TSH, ultra-se nsitive, serum 09/13/20 [facility], [address], [address], [place], [address], 4 09:14:11 CMP, serum or plasma 09/13/20 KENDRA Rodriguez, [address], [address], [place], [address], 4 09:14:09 lipid panel, serum 09/13/20 [facility]DRA Rodriguez, [address], [address], [place], [address], 4 09:14:08 CBC 09/13/20 KENDRA Rodriguez, [address], [address], 4 09:14:13 Referral None recorded . Procedures None recorded . Surgeries None recorded . Imaging None recorded . Medication Orders None recorded . Patient TargetsNo targets recorded. Patient Instructions Encounter Date Encounter Id Patient Instructions Last Modified By Organization Details Last Modified Time 09/13/2024 [id number] learning about vaping Not available 09/13/2024 14:34:05 [...] Not available 09/13/2024 14:33:13 Reason for Referral None Reported. Problems Name Problem SNOMED Code Status Onset Date Resolution Date Notes Provider Name and Address Organization Details Recorded Time Acute viral pharyngitis Active Drew Reilly MD Attn: Accounting,[address], [place], [address], [facility] 6 12:14:04 Problem Notes None recorded. Procedures Surgical History Date Name Laterality Status Provider Name and Address Organization Details Recorded Time 3 excision of keloid completed BRITTANEY Reyna [place] [facility] 09/13/2024 14:16:22 Imaging Results None recorded. Procedure Notes None recorded. Medical Equipment None [...] propionate 50 mcg/actuati on nasal spray,suspe nsion [place] 1 spray every day by intranasa l [...] Available Not Available Vitals Date Recorded Body height Body mass index (BMI) Body weight Oxygen saturation Oxygen saturation in Arterial blood by Pulse oximetry Respiratory rate Body temperature Heart rate Systolic blood pressure Diastolic blood pressure Provider Name and Address Organization Details Last Updated DateTime 4 172.72 cm 20.8 kg/m2 43593.1 5 g 98 % 98 % 16 /min 98 [degF] 80 /min 106 mm[Hg] 64 mm[Hg] BRITTANEY Reyna [facility] 4 14:18:24 Social History Question Answer Notes LastModified by [email or web address] ion Details LastModified Time Tobacco Smoking Status Current Every Day Smoker VAPE ONLY/ NO cigarettes. Sonal Sutton MA [facility], [facility] 11/11/2022 16:07:34 Do You Have An Advance Directive? No Information not available 08/31/2022 What Is Your Level Of Alcohol Consumption? Occasional Information not available 09/13/2024 Do You Wear A Helmet When Biking? No Information not available 08/31/2022 Are You Blind Or Do You Have Difficulty Seeing? No Information not available 09/13/2024 Are You Or Have You Been Involved With Bullying? No [email or web address] Information not available 07/31/2015 What Is Your [...] Type Of Diet Are You Following? REGULAR [email or web address] Information not available 07/31/2015 Do You Or Have You Ever Used E-cigarettes Or Vape? Current User Of Electronic Cigarettes Information not available 11/11/2022 What Is The Highest Grade Or Level Of School You Have Completed Or The Highest Degree You Have Received? [id number] Information not available 08/31/2022 What Is Your Occupation? [employer] Information not available 09/13/2024 Have There Been Any Changes To Your Family Or Social Situation? Yes See Below [email or web address] Information not available 07/31/2015 Are There Any Guns Present In Your Home? No [email or web address] Information not available 07/31/2015 What Is Your Home Situation? Father Step Mom [email or web address] Information not available 06/04/2023 Do You Use Insect Repellent Routinely? Yes [email or web address] Information not available 07/31/2015 Car Seat Type Or Seat Belt? Seat Belt [email or web address] Information not available 07/31/2015 Parent Involvement? Both Parents Involved 50-50 Information not available 07/31/2015 What Was The Date Of Your Most Recent Tobacco Screening? 09/13/2024 Information not available 09/13/2024 How Many Children Do You Have? 0 Information not available 09/13/2024 What Is Your Parents' Marital Status? Information not available 07/31/2015 Do You Have Any Pets? No Information not available 11/11/2022 What Is Your Relationship Status? Single Information not available 09/13/2024 Do You Use Your Seat Belt Or Car Seat Routinely? Yes Information not available 08/31/2022 Are You Sexually Active? Yes Information not available 09/13/2024 Do You Have Any Siblings? 2 Brother 1 Sister - , Brain Tumor [email or web address] Information not available 07/31/2015 Do You Have Smoke And Carbon Monoxide Detectors In Your Home? Yes [email or web address] Information not available 07/31/2015 Are You Passively Exposed To Smoke? Yes [email or web address] Information not available 07/31/2015 Do You Or Have You Ever Used Smokeless Tobacco? Never Used Smokeless Tobacco Information not available 09/13/2024 Do You Participate In Social Media? Yes Information not available 08/31/2022 What Types Of Sporting Activities Do You Participate In? Pasta [employer] [email or web address] Information not available 06/04/2023 Do You Feel Stressed (tense, Restless, Nervous, Or Anxious, Or Unable To Sleep At Night)? [id number] Information not available 09/13/2024 Do You Use Any Illicit Or Recreational Drugs? Yes Marijuanna Information not available 09/13/2024 Do You Use Sunscreen Routinely? Yes [email or web address] Information not available 07/31/2015 Has Tobacco Cessation [...] 09/13/2024 What is your exercise level? Moderate [email or web address] Information not available 07/31/2015 Mental Status None recorded. Family History Relationship Description Onset Age of this Age Resolved Age Notes LastModified by Organization Details LastModified Time Sister Suspected brain tumor deceas ed [email or web address] Not available 07/16/2016 12:07:25 Paternal Grandfather Hypercholest [...] N Anemia N Constipation N Heart Attack (NE) N Diabetes N Bedwetting Y Heart Problems/Murmur [...] Immunizations Vaccine Type Date Status Note Provider Bryson e and Address Organization Details Recorded Time varicella 9 completed Jillian Doyle APN, FNP-C Attn: Accounting[address] [place], [address], [facility] 09/13/2024 14:21:40 polio, unspecified formulation 8 completed Jillian Doyle APN, FNP-C Attn: Accounting[address] [place], [address], [place] [facility] 09/13/2024 14:21:40 influenza, split (incl. purified surface antigen) 3 completed Jillian Doyle APN, TORNADO CHASER-C Attn: Accounting[address] [place], [address], [place] [facility] 09/13/2024 14:21:40 DTaP, unspecified formulation 4 completed Jillian Doyle APN, TORNADO CHASER-C Attn: Accounting,[address], [place], [address], [place] [facility] 09/13/2024 14:21:40 DTaP, unspecified formulation 3 completed Jillian Doyle APN, TORNADO CHASER-C Attn: Accounting,[address], [place], [address], [place] [facility] 09/13/2024 14:21:40 MMR 4 completed SHY [place], [place] [facility] [...] - [facility] 07/31/2015 12:29:39 varicella 4 [place] [facility] 07/31/2015 12:29:39 DTaP 3 completed Sonal [place], [place] [facility] 07/31/2015 12:29:39 IPV 3 completed Sonal [place] [facility] 07/31/2015 12:29:39 pneumococcal conjugate PCV 7 3 completed SH[place] [facility] 07/31/2015 12:29:39 Hib, unspecified formulation 3 completed Sonal [place] [facility] 07/31/2015 12:29:39 DTaP 8 completed SH[place] [facility] 07/31/2015 [...] [place] [facility] 07/31/2015 12:29:39 IPV 4 completed Sonal [place] [facility] 07/31/2015 12:29:39 influenza, unspecified formulation 3 completed Sonal [place] [facility] 07/31/2015 12:29:39 Hib-Hep B 3 completed Snoal [place] [facility] 07/31/2015 12:29:39 varicella 8 completed Jillian Doyle APN, TORNADO CHASER-C Attn: Accounting[address] [place], [address], [facility] 09/13/2024 14:21:40 MMR 8 completed Jillian Doyle APN, TORNADO CHASER-C Attn: Accounting[address] [place], [address], [facility] 09/13/2024 14:21:40 Past Encounters Encounter ID Performer Location Encounter Start Date Encounter Closed Date Diagnosis/Indication Diagnosis SNOMED-CT Code Diagnosis ICD10 Code Diagnosis Note [id number] Jillian Doyle APN, TORNADO CHASER-C [facility] [address] [place] [address] 09/13/2024 13:57:28 09/15/2024 13:57:44 Adult health examination 739977402 Z00.01 Encouraged routine MANAGER WATER WASTEWATER, vision, dental exams, well balanced diet. Recurrent candidiasis of vagina 409938522 B37.32 advised gyne Electronic cigarette user 086081609 Z72.89 cessation advised Depression screening 171 046856 Z13.31 depression screening positive-r epeat at followup Health Concerns Section Related Observation LastModified by Organization Detai ls LastModified Time None Recorded Concern Status LastModified by Organization Details LastModified Time None Recorded Payers Encounter Date Sequence Insurance Name Policy Number Policy Brown Covered Member ID Brown Member ID Guarantor Name 09/13/2024 1 [employer] - [facility] [address] [facility] [id number] Nuris Sorenson [id number] Kevin Penny Notes Date Note Type Note Provider Name and Address Organization Details Recorded Time 09/13/2024 text/html last pcp was mary griffin. José Antonios tested for DM do to reoccurring yeast infections. sees gyno. NO family hx Jillian Doyle APN, TORNADO CHASER-C Attn: Accounting,[address], [place], [address], [facility] 09/15/2024 09:58:44 OBGyn Episode No OBEpisode recorded.
--- OUTSIDE RECORDS SUMMARY | 2024-11-29 10:30 | XMS_ITS | Encounter Summary ---
Author Organization [facility] Address [address] [place] [address] Care Team Providers Care Recreation Therapist Name Role Phone Drew Reilly MD Primary Care Provider [phone] Reason for Visit * Reason Comments Cough deep cough x 5 days. Nonproductive. No nasal complaints. No fever. Encounter Details Date Type Department Care Team ([facility] Contact Info) Description 11/13/2014 1:00 PM AUTOMOTIVE ASSEMBLER Office Visit [facility] - Pediatrics [address] [place] [address] Drew Reilly MD [address] [id number] URI (upper respiratory infection) (Primary Dx) Social History Tobacco Use Types Packs/Day Years Used Date Smoking Tobacco: Never Assessed Sex and Gender Information Value Date Recorded Sex Assigned at Not on file Gender Identity Not on file Sexual Orientation Not on file documented as of this encounter Last Filed Vital Signs Vital Sign Reading Time Taken Comments Blood Pressure - - Pulse - - Temperature 37 ??C (98.6 ??F) 11/13/2014 1:25 PM AUTOMOTIVE ASSEMBLER Respiratory Rate - - Oxygen Saturation - - Inhaled Oxygen Concentration - - Weight 51.2 kg (112 lb 12.8 oz) 11/13/2014 1:25 PM AUTOMOTIVE ASSEMBLER Height 156.8 cm (5' 1.75 ) 11/13/2014 1:25 PM CS T Body Mass Index 20.8 11/13/2014 1:25 PM AUTOMOTIVE ASSEMBLER Body Mass Index Percentile 82.09% 11/13/2014 1:2 5 PM AUTOMOTIVE ASSEMBLER Growth Chart: [facility] (Girls, 2- 20 Years) documented in this encounter Progress Notes * Drew Reilly MD - 11/13/2014 1:43 PM CST Nuris Sorenson, 9 y.o., female here with a complaint of upper respiratory infection symptoms. deep cough x 5 days. Nonproductive. No nasal complaints. No fever. No chest pain. No abdominal issues.V/D. Fever No, Tmax none Runny nose No, Joe Yes Cough:Yes, night > day Sleep good Appetitiegood Fluids good Medications: none PE: Temp(Src) 98.6 ??F (Temporal Artery) Wt 51.166 kg (112 lb 12.8 oz) BMI 20.81 kg/m2, Alert, NAD, HEENT: Ears Right: Normal Left: Normal Nose Discharge none Throat injected with posterior OP drainage Neck normal, neck supple, trachea midline, no significant adenopathy Chest: no increased work of breathing Lungs Respiratory effort normal, clear to auscultation, normal breath sounds bilaterally Heart Normal PMI. regular rate and rhythm, normal S1, S2, no murmurs or gallops. Impression: ICD-9-CM 1. URI (upper respiratory infection) 465.9 Plan: Supportive care reviewed. Discussed reasons to call back. Follow up as needed. Pt's sister with pontine glioma. Recently received chemotherapy. In interest of trying to minimize potential issues for sister and keeping pt healthy will start zithromax. Discussed how to prevent spread of illnessin household by no sharing food/drinks, frequent hand washing, washing bedding often, etc Orders Placed This Encounter ??? azithromycin (ZITHROMAX) 200 MG/5ML SUSR suspension MOTIVE ASSEMBLER documented in this encounter Plan of Treatment Not on file documented as of this encounter Visit Diagnoses Diagnosis URI (upper respiratory infection)- Primary Acute upper respiratory infections of unspecified site documented in this encounter Care Teams Recreation Therapist Relationship Specialty Start Date End Date Drew Reilly MD [address] [place], [place] [id number] PCP - General 12/03/09 02/11/15 documented as of this encounter
--- OUTSIDE RECORDS SUMMARY | 2024-11-29 10:30 | XMS_ITS | Encounter Summary ---
Author Organization [facility] Address [address] [place] [address] Phone Care Team Providers Care Principal Investigator Name Role Phone Drew Reilly MD Primary Care Provider Encounter Details Date Type Department Care Team (Late st Contact Info) Description 05/04/2023 Telephone [facility] Surgery [address] [facility] 6th [place] [address] [place] [address] Jeanie Rodríguez Social History Tobacco Use Types Packs/Day Years Used Date Smoking Tobacco: Never Comments Unknown Sex and Gender Information Value Date Recorded Sex Assigned at Not on file Legal Sex Female 9:22 AM FIRE SPRINKLER SERVICE TECHNICIAN Gender Identity Not on file Sexual Orientation Not on file documented as of this encounter Miscellaneous Notes * Telephone Encounter - Jeanie Rodríguez - 05/04/2023 12:00 PM CDT Called pt to schedule 45 minute IOP for keloid excision with Vishnu De La Torre - mariola voicemail. Per Cindy, 06/04 at 11:15am. documented in this encounter Plan of Treatment Not on file documented as of this encounter Visit Diagnoses Not on filedocumented in this encounter Care Teams Principal Investigator Relationship Specialty Start Date End Date Drew Reilly MD PCP - General Pediatrics 01/07/23 documented as of this encounter
--- OUTSIDE RECORDS SUMMARY | 2024-11-29 10:30 | XMS_ITS | Referral Summary ---
Author Organization [facility] [employer] Address [address] [place] [address] Care Team Providers Care Elevator Service Technician Name Role Phone Brigid Woods MACHINE BANDER AND CELLOPHANER-BLIND SLAT STAPLING MACHINE OPERATOR Unavailable Source Comments [facility],non-owned Affiliates and Associated Physician Practices is amultiple site organization consisting of ambulatory clinics and hospital sitesin [place], [place], [place] and [place]. This disclosure is being madepursuant to the Care Everywhere program and may not contain all information available regarding this patient. Last updated 18.[facility] [employer] Allergies No known active allergies Medications * Be aware that medications may not be up to date on this document. Alwaysverify current medications with the patient. Medication Sig Dispensed Refills Start Date End Date Status azithromycin (ZITHROMAX) 200 MG/5ML SUSR suspension 2 tsp po q day for 5 days 50 mL 0 11/13/2014 Active cetirizine (ZYRTEC) 10 MG chew tablet Take 1 Tab by mouth at bedtime. 12 Tab 0 02/12/2015 Active Social History Tobacco Use Types Packs/Day Years Used Date Smoking Tobacco: Never Smokeless Tobacco: Never Alcohol Use Standard Drinks/Week Comments Never 0 (1 standard drink = 0.6 oz pur e alcohol) Sex and Gender Information Value Date Recorded Sex Assigned at Not on file Gender Identity Not on file Sexual Orientation Not on file Last Filed Vital Signs Vital Sign Reading Time Taken Comments Blood Pressure 120/60 03/15/2023 11:53 AM CDT Pulse 83 03/15/2023 11:53 AM CDT Temperature 37.5 ??C (99.5 ??F) 03/15/2023 11:53 AM C DT Respiratory Rate - - Oxygen Saturation 99% 03/15/2023 11:53 AM CDT Inhaled Oxygen Concentration - - Weight 61.4 kg (135 lb 6.4 oz) 03/15/2023 11:53 AM CDT Height 160 cm (5' 3 ) 02/12/2015 10:39 AM CDT Body Mass Index - - Plan of Treatment Not on file Goals Goal Patient Goal Type Associated Problems Recent Progress Patient-Stated? Author Use safety retraint in car Lifestyle On track( 015 10:40 AM CDT) Beth Patel, MARILYN Care Teams Elevator Service Technician Relationship Specialty Start Date End Date Brigid Woods, MACHINE BANDER AND CELLOPHANER-BLIND SLAT STAPLING MACHINE OPERATOR [address] [place] [address] Nurse Practitioner 03/12/23
--- OUTSIDE RECORDS SUMMARY | 2024-11-29 10:30 | XMS_ITS | Clinical Summary ---
Author Organization [facility] [employer] Address [address] [place] [address] Care Team Providers Care Power Truck Driver Name Role Phone Brigid Woods COLLECTION SYSTEMS CONSULTANT-WEAPONS DESIGNER Unavailable Source Comments [facility],non-owned Affiliates and Associated Physician Practices is amultiple site organization consisting of ambulatory clinics and hospital sitesin [place], [place], [place] and [place]. This disclosure is being madepursuant to the Care Everywhere program and may not contain all information available regarding this patient. Last updated 18.[facility] [employer] Allergies No known active allergies Medications * [...] at bedtime. 12 Tab 0 02/12/2015 Active Family History Medical History Relation Name Comments Thyroid Disease Maternal Grandmother Thyroid Disease Paternal Grandmother Relation Name Status Comments Brother Alive Father Alive Maternal Grandfather Alive Maternal Grandmother Alive Mother Alive Paternal Grandfather Alive Paternal Grandmother Alive Sister Alive Social History Tobacco Use Types Packs/Day Years [...] Mass Index - - Plan of Treatment Health Maintenance Due Date Last Done Comments PAP SMEAR 2003 HIV SCREENING 2018 HPV VACCINE (1 - 3-dose series) 2018 CHLAMYDIA/GONORRHEA SCREENING 2019 HEPATITIS C SCREENING 04/25/2021 DTAP/TDAP/TD VACCINES (1 - Tdap) 2022 HEPATITIS B VACCINE (1 of 3 - 19+ 3-dose series) 2022 DEPRESSION SCREENING 11/22/2023 COVID-19 VACCINE (1 - 2023-2 5 season) 2024 INFLUENZA VACCINE (#1) 2024 3, 2003 ZOSTER VACCINE (1 of 2) 2053 HIB VACCINE Aged Out No longer eligi ble based on patient's age to complete this topic MENINGOCOCCAL VACCINE Aged Out No nile prema eligible based on patient's age to complete this topic PNEUMOCOCCAL VACCINE Aged Out No long er eligible based on patient's age to complete this topic Goals Goal Patient Goal Type Associated Problems Recent Progress Patient-Stated? Author Use safety retraint in car Lifestyle On track( 015 10:40 AM CDT) No Beth Kelley, MARILYN Care Teams Power Truck Driver Relationship Specialty Start Date End Date Brigid Woods, COLLECTION SYSTEMS CONSULTANT-WEAPONS DESIGNER [address] [place] [address] Nurse Practitioner 03/12/23
--- OUTSIDE RECORDS SUMMARY | 2024-11-29 10:30 | XMS_ITS | Referral Summary ---
Author Organization [facility] Address [address] [facility] [address] [place] [address] Care Team Providers Care Director Of Loss Prevention Name Role Phone Drew Reilly MD Primary Care Provider Allergies No known active allergies Medications No known medications Active Problems Problem Noted Date Diagnosed Date Acute viral pharyngitis 04/23/2023 04/23/20 Primary nocturnal enuresis 12/22/2012 Social History Tobacco Use Types Packs/Day Years Used Date Smoking Tobacco: Never Tobacco Cessation:Counseling Given: Not Answered Personal Safety Answer Date Recorded Getting School Help Needed Not on file 12/17 Comments Unknown Sex and Gender Information Value Date Recorded Sex Assigned at Not on file Legal Sex Female 9:22 AM COMMUTATOR INSPECTOR Gender Identity Not on file Sexual Orientation Not on file Last Filed Vital Signs Vital Sign Reading Time Taken Comments Blood Pressure 112/78 12/22/2012 9:30 AM COMMUTATOR INSPECTOR Pulse - - Temperature - - Respiratory Rate - - Oxygen Saturation - - Inhaled Oxygen Concentration - - Weight 43.1 kg (94 lb 15.9 oz) 12/22/2012 9:30 A M COMMUTATOR INSPECTOR Height 144.8 cm (4' 9 ) 12/22/2012 9:30 AM COMMUTATOR INSPECTOR Body Mass Index 20.56 12/22/2012 9:30 AM COMMUTATOR INSPECTOR Plan of Treatment Not on file Insurance [employer] Care Teams Director Of Loss Prevention Relationship Specialty Start Date End Date Drew Reilly MD PCP - General Pediatrics 01/07/23
--- OUTSIDE RECORDS SUMMARY | 2024-11-29 10:30 | XMS_ITS | Encounter Summary ---
Author Organization [facility] Address [address] [place] [address] Phone Care Team Providers Care Telephone Maintenance Mechanic Name Role Phone Drew Reilly MD Primary Care Provider Reason for Visit * Consultation (Routine) - Closed Specialty Diagnoses / Procedures Referred By Jonathan robledo Referred To Contact Plastic Surgery Diagnoses Drew Dodge MD Phone: tel: fax: [facility] (All Locations) Referral ID Status Reason Start Date Expiration Date V isits Requested Visits Authorized [id number] Closed Specialty Services Required 01/07/2023 02/06/2024 99 [phone] Encounter Details Date Type Department Care Team (Late st Contact Info) Description 04/23/2023 1:30 PM CDT Office Visit [facility] Surgery [address] [facility] 6th [place] [address] [place] [id number] Bailey De La Torre, AGNES [address] [place] [address] Jayden (Primary Dx) Social History Tobacco Use Types Packs/Day Years Used Date Smoking Tobacco: Never Tobacco Cessation:Counseling Given: Not Answered Comments Unknown Sex and Gender Information Value Date Recorded Sex Assigned at Not on file Legal Sex 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 Plastic and Reconstructive Surgery NEW PATIENT OFFICE VISIT HISTORY OF PRESENT ILLNESS: This is a 17 y.o. with a lesion on the left ear. The patient was referred by their primary care physician and has recommended removal. There are no factors that increase or decrease the size of this lesion. The lesion has grown over the last two years. No other lesions are present. No tenderness oritching is noted. It has been present for 2 years, after an ear piercing. Denies drainage, infection. PAST MEDICAL HISTORY: She has no past medical history on file. Reviewed and confirmed questionnaire completed out by patient. PAST SURGICAL HISTORY: She has no past surgical history on file. Reviewed and confirmed questionnaire completed out by patient. MEDICATIONS: She currently has no medications in their medication list. Reviewed and confirmed questionnaire completed out by patient. DRUG ALLERGIES: She has no allergies on file. Reviewed and confirmed questionnaire completed out by patient. SOCIAL HISTORY: She No alcohol history on file. Reviewed and confirmed questionnaire completed out by patient. The patient-completed Review of Systems was reviewed and was scanned as an attachment to this encounter. Objective PHYSICAL EXAMINATION: There were no vitals filed for this visit. Constitutional General: Well nourished, No acute distress. Psychiatric: Normal mood and affect Neurologically: Awake and alert. Skin: Trevizo II. The left ear shows a 1.5cm round adherent firm lesion. There are not overlying skin changes, ulceration. Head:Normocephalic Eyes: Symmetric in size and position. Ears, Nose, Mouth: Nose without any deviation. Symmetric and intact cranial nerve function. Ears are symmetric in position. Chin is in the midline. Neck with full range of motion. Musculoskeletal: Motor examination showed normal bulk, tone and power throughout all four extremities. Has had good head and neck control. Respiratory: Equal chest rise with no audible wheezing Abdomen: Soft, non-tender, non-distended, no masses. ASSESSMENT AND PLAN: This is a 17 y.o. with a left year lesion that is likely a keloid. Plan will be for excision in the procedure room. The patient will be awake, receive local anesthetic. Expected to feel pressure and be aware of surroundings, but minimal to no sharp pain and discomfort. Can washand shower the same day. They understand the risk of bleeding, infection, recurrence and need for more procedures. They understand that there will be a scar after this procedure. Scarring may become hypertrophic or keloid and require additional treatments. Photos were obtained. documented in this encounter Plan of Treatment Not on file documented as of this encounter Visit Diagnoses Diagnosis Keloid- Primary Keloid scar documented in this encounter Orders Outpatient Referral Count Last Ordered Date Fir st Ordered Date AMB REFERRAL TO PLASTIC SURGERY 1 3 documented in this encounter Care Teams Telephone Maintenance Mechanic Relationship Specialty Start Date End Date Drew Reilly MD PCP - General Pediatrics 01/07/23 documented as of this encounter
--- OUTSIDE RECORDS SUMMARY | 2024-11-29 10:30 | XMS_ITS | Encounter Summary ---
Author Organization [facility] Address [address] [place] [address] Care Team Providers Care Classics Teacher Name Role Phone Drew Reilly MD Primary Care Provider [phone] Reason for Visit * Reason Comments Complete Physical Exam Dizziness X 5-6 times daily in past 1 week; lasts about 20 seconds, head hurts, & eyes see spots ; then all S/S go away Encounter Details Date Type Department Care Team (Late st Contact Info) Description 07/19/2014 10:30 AM CDT Office Visit [facility] Medical [facility] - Pediatrics [address] [place] [phone] Drew Reilly MD [address] [place] [address] [place] [address] [phone] WCC (well child check) (Primary Dx); Orthostatic hypotension Social History Tobacco Use Types Packs/Day Years Used Date Smoking Tobacco: Never Assessed Sex and Gender Information Value Date Recorded Sex Assigned at Not on file Gender Identity Not on file Sexual Orientation Not on file documented as of this encounter Last Filed Vital Signs Vital Sign Reading Time Taken Comments Blood Pressure 112/65 07/19/2014 10:59 AM CDT Pulse 97 07/19/2014 10:59 AM CDT Temperature 36.6 ??C (97.8 ??F) 07/19/2014 1 0:59 AM CDT Respiratory Rate - - Oxygen Saturation - - Inhaled Oxygen Concentration - - Weight 48.4 kg (106 lb 9.6 oz) 07/19/20 14 10:59 AM CDT Height 154.9 cm (5' 1 ) 07/19/2014 10:5 9 AM CDT Body Mass Index 20.14 07/19/2014 10:59 AM CDT Body Mass Index Percentile 79.39% 07/19 10:59 AM CDT Growth Chart: CDC (Girls, 2- 20 Years) documented in this encounter Patient Instructions * Patient Instructions* Drew Reilly MD - 07/19/2014 11:50 AM CDT YOUR GROWING CHILD: ADOLESCENT Child???s Name: Nuris Sorenson Today???s Date: 07/19/2014 68.4% systolic and 55.9% diastolic of BP percentile by age, sex, and height. Wt Readings from Last 3 Encounters: 07/19/14 48.353 kg (106 lb 9.6 oz) (86 %*, Z = 1.07) * Growth percentiles are based on CDC 2-20 Years data. Ht Readings from Last 3 Encounters: 07/19/14 1.549 m (5' 1 ) (90 %*, Z = 1.27) * Growth percentiles are based on CDC 2-20 Years data. Body mass index is 20.15 kg/(m^2). 79%ile (Z=0.82) based on [facility] 2-20 Years BMI-for-age data using vitals from 07/19/2014. 86%ile (Z=1.07) based on [facility] 2-20 Years [id number]-[id number] data using vitals from 07/19/2014. 90%ile (Z=1.27) based on CDC 2-20 Years kxeghlf-eay-[id number] data using vitals from 07/19/2014. IMMUNIZATIONS At the time of high school physical you will receive a Tdap booster. Other immunizations which we recommend, but that are not required are Menactra (protects again one type of bacterial meningitis), Gardisil (protects girls and women against Human Papilloma Virus), and Hepatitis A vaccine if not already given. PROMOTION OF HEALTHY AND SAFE HABITS: Try to get 8 hours of sleep a night. Engage in moderately strenuous to vigorous physical activity (e.G walking, biking, aerobics for 30 - 60 minutes at least three times a week). Limit TV viewing, computer and video games. Practice time management skills. INJURY AND VIOLENCE PREVENTION: Always wear safety belt when driving or riding in a car. If you are driving, insist that your passengers wear safety belts. Follow the speed limit and drive responsibly. Concentrate when driving and avoid distractions(e.g talking on the phone, texting, playing loud music,eating). Do not drink alcohol, especially when driving, swimming, boating or operating farm equipment or other machinery. Plan to ride with a designated patrol driver or to call for a ride if drinking. Write and sign a no drinking and driving contract with your parents. Learn how to swim(if you haven't already learned). Learn first aid and CPR. Reduce your risk of developing skin cancer by limiting time in the sun and applying sunscreen before going outside. Avoid tanning salons. Help your parents test smoke alarms in your home to be sure they work properly, and help change the batteries yearly. Know what to do in case of fire or other emergency. Review fire safety plans at home. Always wear a helmet when riding on a motorcycle, bike, or all-terrain vehicle. However, ATV's and motorcycles are dangerous, even with a helmet. Wear protective gear(e.g eye protection, mouth guard,helmet, knee and elbow pads) for sports and other physical activities such as in-line skating. Wearappropriate protective gear at work and follow job safety procedures. Avoid high noise levels, especially when using ear phones. Do not carry or use a weapon of any kind. Develop skills in conflict resolution, negotiation, and dealing with anger constructively. Learn techniques to protect yourself from physical, emotional, and sexual abuse or rape. Seek help if you are physically or sexually abused or fear that you are in danger. MENTAL HEALTH: Take on new challenges that will increase your self confidence. Continue to develop your sense of identity, clarifying your values and beliefs. Accept who you are and enjoy both the child and adult in you. Trust your own feelings, and also listen to the ideas of good friends and valued adults. Seekhelp if you often feel angry, depressed, or hopeless. Learn how to deal with stress. Set reasonablebut challenging goals. Understand the importance of your spiritual needs and try to fulfill them. NUTRITION: Choose and prepare a variety of healthy foods. Eat three nutritious meals a day at regularly scheduled times; breakfast is especially important. Select a nutritious lunch from the school cafeteria orpack a balanced lunch. Choose plenty of fruits and vegetables;breads, cereals, and other whole grain products; low-fat dairy; lean meats, chicken, fish and foods prepared with little or not fat. Include foods rich in calcium and iron in your diet. Choose nutritious snacks that are rich in complex carbohydrates. Limit high-fat or low-nutrient foods and beverages such as candy, chips, or soft drinks. Achieve and maintain a healthy weight. Manage weight through eating habits and regular physical ac tivity. ORAL HEALTH: Winifrede your teeth twice a day with a pea-size amount of fluoridated toothpaste, and floss between your teeth daily. Schedule a dental appointment every 6 months or as advised, ask your dental professional how to handle dental emergencies, especially the loss or fracture of a tooth. Do not smoke or use chewing tobacco. SEXUALITY: Identify a supportive adult who can give you accurate information about sex. Ask the health professional for information on sexual development and maturity, contraception, and prevention of sexually transmitted diseases. Discuss any questions you have. If you are confused or concerned about your sexual feelings( for the same or opposite sex), talk with the health professional or a trusted adult. Recognize that sexual feelings are normal, but having sex should be a mzkp-yccgzvx-fwn decision. Delay having sex until you and your partner are mature enough to assume responsibility for sexual relations. Share your feelings about sexuality with your partner. Abstaining from sexual intercourse is the safest way to prevent and sexually transmitted diseases, including HIV/AIDS. Learn ways to resist sexual pressures and say no to sex. If you are sexually active, discuss contraceptivemethods and STD prevention with your doctor. Learn about and practice safer sex. Limit the number of partners and use latex condoms and other barriers correctly. PREVENTION OF SUBSTANCE USE/ABUSE: Do not smoke, use smokeless tobacco, drink alcohol, or use drugs, inhalants, diet pills, or steroids. Do not become involved in selling drugs. If you smoke, talk with the health professional about how to stop smoking. If you use drugs or alcohol, discuss this with your health professional and ask for help. Support your friends who choose not to use tobacco, alcohol, drugs, steroids, or diet pills. PROMOTION OF SOCIAL COMPETENCE: Spend time with your family doing things you all enjoy.Participate in social activities, community groups, or team sports.Make sure you understand the limits your parents have set and the consequences they have established for unacceptable behavior. Talk with your family and friends about your strategies and coping mechanisms for handling negative peer pressure. Continue your progress in making independent decisions and understanding the consequences of your behavior. PROMOTION OF RESPONSIBILITY: Respect the rights and needs of others. Follow family rules, such as those for curfews or driving. Share in delimber operator. Learn about how you can take on new responsibility in your family, peer group, and community. Learn new skills(e.g lifesaving, peer mentoring) that can be useful in helping your friends, familyor community. Talk to your health professional about taking responsibility for you own health and becoming fully informed about preventive health services. PROMOTION OF SCHOOL ACHIEVEMENT: Be responsible for your own school attendance, home work , course selection and extracurricular activities. If you feel frustrated with school or are thinking about dropping out, discuss your feelings with a trusted adult. Identify talents and interests that you want to pursue for a career or for personal enrichment. Make plans for after high school(e.g college options, vocational training, the , other career choices) PROMOTION OF COMMUNITY INTERACTION: Participate in social, temple, cultural, volunteer or recreational activities. Advocate for community programs(recreational, athletic, artistic, and educational activities) Talk with friends and family about current events and community responsibilities such as voting, conservation and recycling. Explore your cultural heritage and learn about other cultures. Participate in culturally diverse activities. SUGGESTED INTERNET-SAFETY WEB SITES: Don't consume more than two hour of entertainment media. Avoid having a TV or computer in your room. www.KDW: A great site for older teens that includes ways to communicate with peers when they experience online bullying that is not cool . www.wiredkids.org: A site for younger and older teens, as well as parents, with many suggestions oninternet safety www.LitRestz.org: A site presented by the National Center for Missing and Exploited Children with information for kids, teens and parents, much of it focused on avoiding cyber bullying. documented in this encounter Progress Notes * Drew Reilly MD - 07/19/2014 11:01 AM CDT Mother states she has received vaccines, but refusing any further vaccines. S[facility] Nurse Note Parental Concerns: pt develops dizzy episodes that last maybe 20 seconds and about once per day. Donot always occur with standing up. No emesis with the episodes. Diet: Milk 2%, 16 ounces per day. Vegetables: good, fruits: good, meats: good, Dental: Tooth brushing twice daily: No Regular dental visits: Yes Concerns re: Hearing / Vision: No MD Note: Medications: none Exercise/Sports: School: Grade:6, Grades: ROS: no wheezing, cough or dyspnea, no chest pain, no abdominal pain, no headaches, no bowel or bladder symptoms. No problems during sports participation in the past. PMH: No past medical history on file. FH: Early Heart Disease No Sudden No Diabetes No Physical Exam: Wt Readings from Last 3 Encounters: 07/19/14 48.353 kg (106 lb 9.6 oz) (86 %*, Z = 1.07) * Growth percentiles are based on CDC 2-20 Years data. Ht Readings from Last 3 Encounters: 07/19/14 1.549 m (5' 1 ) (90 %*, Z = 1.27) * Growth percentiles are based on CDC 2-20 Years data. Normalized head circumference data available only for age 0 to 36 months. 86%ile (Z=1.07) based on CDC 2-20 Years nrplfk-ncr-dch data using vitals from 07/19/2014. 90%ile (Z=1.27) based on CDC 2-20 Years cyjsrdn-uct-spy data using vitals from 07/19/2014. BP 112/65 Pulse 97 Temp(Src) 97.8 ??F (Temporal Artery) Wt 48.353 kg (106 lb 9.6 oz) BMI 20.15 kg/m2 68.4% systolic and 55.9% diastolic of BP percentile by age, sex, and height. GENERAL: Alert, NAD EYES: PERRLA, EOMI, red reflex bilaterally EARS: TM's wnl NOSE: nasal passages clear NECK: supple, no masses, no lymphadenopathy RESP: clear to auscultation bilaterally CV: RRR, normal S1/S2, no murmurs, clicks, or rubs. ABD: soft, nontender, no masses, no hepatosplenomegaly, normal bowel sounds : normal female exam EXTREMITIES: Full range of motion of all extremities SPINE: Straight SKIN: no rashes or lesions Impression: 1.) Well child 2.) orthostatic hypotension 79%ile (Z=0.82) based on CDC 2-20 Years BMI-for-age data using vitals from 07/19/2014. Plan: Anticipatory guidance discussed included nutrition, safety, dentist, limiting media, exercise. Vaccines: none Follow up in 1 year. Dizziness likely due to orthostatic hypotension. Discussed getting up slowly and increasing fluid intake. Due to pt's sister's history ( dx with inoperable glioblastoma) if symptoms persist or worsenwill strongly consider obtain imaging. documented in this encounter Plan of Treatment Not on file documented as of this encounter Visit Diagnoses Diagnosis WCC (well child check)- Primary Routine or child health check Orthostatic hypotension documented in this encounter Care Teams Classics Teacher Relationship Specialty Start Date End Date Drew Reilly MD [address] [place] [address] [place] [address] [phone] PCP - General 12/03/09 02/11/15 documented as of this encounter
--- OUTSIDE RECORDS SUMMARY | 2024-11-29 10:30 | XMS_ITS | Data Portability ---
Author Organization [facility] [place] Address [address] [place] [address] [place] [address] Care Team Providers Care Science Analyst Name Role Phone JENIFER GOMEZ Primary Care Provider Assessment Encounter Date Assessment Date Assessment LastModified by Organization Details LastModified Time 05/24/2024 05/24/2024 Annual gynecological exam performed. Patient will come back in a year unless there are new symptoms. [email or web address] Not available 05/24/2024 11:55:40 Plan of Treatment Reminders Order Date Submit Date Provider Last Modified By Organization Details Last Modified Time Details Appointments None recorded. Lab urinalysis, dipstick [email or web address], [address], [place], [address], 3 16:25:51 test, urine 2022 023 [email or web address] [place], [address], [place], [address], 3 10:27:45 dhea-sulfat e, serum 2023 024 [facility] (Lab), [address], [place], [address], 4 20:13:34 hormone panel, serum or plasma 2023 024 [facility] (Lab), [address], [place], [address], 4 20:13:33 progesteron e, serum 2023 024 [facility] (Lab), [address] [facility], [place], [address], 4 20:13:32 prolactin, serum 2023 024 [facility] (Lab), [address] [facility], [place], [address], 4 20:13:32 shbg (sex hormone-bin ding globulin), serum 2023 024 [facility] (Lab), [address] [place], [address], 4 20:13:34 TSH, serum or plasma 2023 024 [facility] (Lab), [address] [facility], [place], [address], 4 20:13:33 testosteron e free/testos terone total, ratio, serum 2023 024 [facility] (Lab), [address] [facility], [place], [address], 4 20:13:35 HBsAg (hepatitis B surface Ag), serum 2023 024 [facility] (Lab), [address] [facility], [place], [address], 4 20:13:31 Referral None recorded. Procedures None recorded. Surgeries None recorded. Imaging US, pelvis [address], [facility] [address], [place], [address], 4 19:48:58 US, transvagina l 2023 [address], [address], [place], [address], 4 19:48:58 Medication Orders Macrobid 100 mg capsule 2022 023 [email or web address] [facility] #[id number], [address], [place], [id number], 3 09:58:19 Valtrex 1 gram tablet 2022 024 KENDRA [facility] #[id number], [address], [place], [id number], 12:11:12 Patient TargetsNo targets recorded. Patient InstructionsNo instructions recorded. Reason for Referral None Reported. Results Created Date Observation Date Name Description Value Unit Range Abnormal Flag Note LastModifiedBy Organization Detail LastModifiedTime 08/04/2008/04/2023 URINA LYSIS , WITH MICRO SCOPI C, REFLE X CULTU RE color, urine Light Yellow Not Available [facility] (Lab) [address] [place], [address], 08/07/2023 11:42:46 08/04/20 23 08/04/2023 URINA LYSIS , WITH MICRO SCOPI C, REFLE X CULTU RE clarity, urine Turbid abnormal Not Available [facility] (Lab) [address] [facility], [place], [address], 08/07/2023 11:42:46 08/04/20 23 08/04/2023 URINA LYSIS , WITH MICRO SCOPI C, REFLE X CULTU RE specific gravity, urine 1.031 . 1.005- 1.035 Not Available [facility] (Lab) [address] [facility], [place], [address], 08/07/2023 11:42:46 08/04/20 23 08/04/2023 URINA LYSIS , WITH MICRO SCOPI C, REFLE X CULTU RE pH, urine 6.0 . 5.0-7. 0 Not Available [facility] (Lab) [address] [facility], [place], [address], 08/07/2023 11:42:46 08/04/20 23 08/04/2023 URINA LYSIS , WITH MICRO SCOPI C, REFLE X CULTU RE protein, UA 30 mg/dL negati ve, 10-20 abnormal Not Available [facility] (Lab) [address] [facility], [place], [address], 08/07/2023 11:42:46 08/04/20 23 08/04/2023 URINA LYSIS , WITH MICRO SCOPI C, REFLE X CULTU RE glucose, urine Normal mg/dL negati ve Not Available [facility] (Lab) [address] [facility], [place], [address], 08/07/2023 11:42:46 08/04/20 23 08/04/2023 URINA LYSIS , WITH MICRO SCOPI C, REFLE X CULTU RE ketones, urine Negati ve mg/dL negati ve Not Available [facility] (Lab) [address] [facility], [place], [address], 08/07/2023 11:42:46 08/04/20 23 08/04/2023 URINA LYSIS , WITH MICRO SCOPI C, REFLE X CULTU RE bilirubin, urine Negati ve negati ve Not Available [facility] (Lab) [address] [facility], [place], [address], 08/07/2023 11:42:46 08/04/20 23 08/04/2023 URINA LYSIS , WITH MICRO SCOPI C, REFLE X CULTU RE blood, urine Negati ve negati ve Not Available [facility] (Lab) [address] [facility], [place], [address], 08/07/2023 11:42:46 08/04/20 23 08/04/2023 URINA LYSIS , WITH MICRO SCOPI C, REFLE X CULTU RE nitrite, urine 2+ negati ve abnormal Not Available [facility] (Lab) [address] [facility], [place], [address], 08/07/2023 11:42:46 08/04/20 23 08/04/2023 URINA LYSIS , WITH MICRO SCOPI C, REFLE X CULTU RE leukocyte esterase, urine 75 alfred/u L negati ve abnormal Not Available [facility] (Lab) [address] [facility], [place], [address], 08/07/2023 11:42:46 08/04/20 23 08/04/2023 URINA LYSIS , WITH MICRO SCOPI C, REFLE X CULTU RE urobilinogen , urine Normal mg/dL normal , <2.0 Not Available [facility] (Lab) [address] [facility], [place], [address], 08/07/2023 11:42:46 08/04/20 23 08/04/2023 URINA LYSIS , WITH MICRO SCOPI C, REFLE X CULTU RE RBC, urine 0-2 /hpf none, 0-2 Not Available [facility] (Lab) [address] [facility], [place], [address], 08/07/2023 11:42:46 08/04/20 23 08/04/2023 URINA LYSIS , WITH MICRO SCOPI C, REFLE X CULTU RE WBC, urine 0-5 /hpf none, 0-5 Not Available [facility] (Lab) [address] [facility], [place], [address], 08/07/2023 11:42:46 08/04/20 23 08/04/2023 URINA LYSIS , WITH MICRO SCOPI C, REFLE X CULTU RE squamous epithelial cells, urine Modera te /hpf none abnormal Not Available [facility] (Lab) [address] [place], [address], 08/07/2023 11:42:46 08/04/20 23 08/04/2023 URINA LYSIS , WITH MICRO SCOPI C, REFLE X CULTU RE bacteria, urine Trace /hpf none abnormal Not Available [facility] (Lab) [address] [facility], [place], [address], 08/07/2023 11:42:46 08/04/20 23 08/04/2023 URINA LYSIS , WITH MICRO SCOPI C, REFLE X CULTU RE hyaline cast, urine None /lpf none, 0-2 Not Available [facility] (Lab) [address] [facility], [place], [address], 08/07/2023 11:42:46 08/04/20 23 08/04/2023 URINA LYSIS , WITH MICRO SCOPI C, REFLE X CULTU RE mucus, urine TNTC /hpf none, trace, few abnormal Urine Cultu re to follo w. Not Available [facility] (Lab) [address] [facility], [place], [address], 08/07/2023 11:42:46 08/04/20 23 08/04/2023 VAGIN ITIS/ VAGIN OSIS, DNA PROBE stacie sp. detection, direct probe Positi ve negati ve abnormal Not Available [facility] (Lab) [address] [facility], [place], [address], 08/07/2023 11:42:46 08/04/20 23 08/04/2023 VAGIN ITIS/ VAGIN OSIS, DNA PROBE gardnerella vag. detection, direct probe Negati ve negati ve Not Available [facility] (Lab) [address] [facility], [place], [address], 08/07/2023 11:42:46 08/04/20 23 08/04/2023 VAGIN ITIS/ VAGIN OSIS, DNA PROBE trichomonas vag. detection, direct probe Negati ve negati ve Not Available [facility] (Lab) [address] [facility], [place], [address], 08/07/2023 11:42:46 08/04/20 23 08/04/2023 CT/GC AND TRICH OMONA S VAGIN WENDI (RRNA ), URINE chlamydia trachomatis, PCR Negati ve negati ve Not Available [facility] (Lab) [address] [facility], [place], [address], 08/07/2023 11:42:47 08/04/20 23 08/04/2023 CT/GC AND TRICH OMONA S VAGIN WENDI (RRNA ), URINE neisseria gonorrhoeae, PCR Negati ve negati ve Not Available [facility] (Lab) [address] [facility], [place], [address], 08/07/2023 11:42:47 08/04/20 23 08/04/2023 CT/GC AND TRICH OMONA S VAGIN WENDI (RRNA ), URINE trichomonas vaginalis ribosomal RNA (rrna) Negati ve negati ve Not Available [facility] (Lab) [address] [facility], [place], [address], 08/07/2023 11:42:47 08/04/20 23 08/04/2023 CULTU RE: URINE result report SEE RESULT S BELOW abnormal Test: Cultu re: Urine Speci men Type: Urine Speci men Date: 2022 4:36 PM Resul t Date: 2022 10:40 AM Resul t Statu s: Final resul t Nikkie griffin: Yes Ibis rosen Lab: [facility] [address] [facility] [address] Tel: CULTU RE ----- ----- ----- --- >100, 000 CFU/m l Esche ivette a coli (Abno rmal) SUSCE PTIBI LITY ----- ----- ----- --- Esche ivette a coli METHO D JEFF ----- ----- ----- ----- ----- ---- ----- ----- ----- ----- ----- AMIKA PEDRITO <=16 ug/mL Susce ptibl e AMPIC ILLIN >16 ug/mL Resis tant AMPIC ILLIN /SULB ACTAM >16 ug/mL Resis tant AZTRE ONAM <=4 ug/mL Susce ptibl e CEFAZ KAYLEY 4 ug/mL Susce ptibl e CEFEP MAGY <=2 ug/mL Susce ptibl e CEFOX ITIN <=8 ug/mL Susce ptibl e CEFTA ZIDIM E <=1 ug/mL Susce ptibl e CEFTR IAXON E <=1 ug/mL Susce ptibl e CIPRO FLOXA PEDRITO <=1 ug/mL Susce ptibl e GENTA MICIN >8 ug/mL Resis tant LEVOF LOXAC IN <=0.2 5 ug/mL Susce ptibl e MEROP ENEM <=1 ug/mL Susce ptibl e NITRO FURAN TOIN <=32 ug/mL Susce ptibl e PIPER ACILL IN/TA ZOBAC BAUER <=4 ug/mL Susce ptibl e TOBRA MYCIN 4 ug/mL Susce ptibl e TRIME THOPR IM/GARCIA LFAME THOXA ZOLE >2 ug/mL Resis tant Not Available [facility] (Lab) [address], [place], [address], 08/07/2023 11:42:47 08/04/2008/04/2023 urina lysis , dipst ick Leukocytes + Not Available [facility] sis [address], [place], [address], 08/04/2023 16:23:56 08/04/20 23 08/04/2023 urina lysis , dipst ick Nitrite + Not Available [place] [address], [place], [address], 08/04/2023 16:23:56 08/04/2008/04/2023 urina lysis , dipst ick Protein trace Not Available [place] [address], [place], [address], 08/04/2023 16:23:56 08/04/20 23 08/04/2023 urina lysis , dipst ick pH 5 Not Available [place] [address], [place], [address], 08/04/2023 16:23:56 08/04/20 23 08/04/2023 urina lysis , dipst ick Blood + Not Available [place] [address], [place], [address], 08/04/2023 16:23:56 08/04/20 23 08/04/2023 urina lysis , dipst ick Specific [place] 1.025 Not Available [facility] [address], [place], [address], 08/04/2023 16:23:56 09/03/20 23 09/03/2023 CT/GC AND TRICH OMONA S VAGIN WENDI (RRNA ), SWAB chlamydia trachomatis, PCR Negati ve negati ve Not Available [facility] (Lab) [address], [place], [address], 09/09/2023 18:03:01 09/03/2009/03/2023 CT/GC AND TRICH OMONA S VAGIN WENDI (RRNA ), SWAB neisseria gonorrhoeae, PCR Negati ve negati ve Not Available [facility] (Lab) [address], [place], [address], 09/09/2023 18:03:01 09/03/2009/03/2023 CT/GC AND TRICH OMONA S VAGIN WENDI (RRNA ), SWAB trichomonas vaginalis ribosomal RNA (rrna) Negati ve negati ve Not Available [facility] (Lab) [address], [place], [address], 09/09/2023 18:03:01 09/03/2009/03/2023 HERPE S SIMPL EX VIRUS , TYPE 1 AND 2 MRNA, TMA,S URESW BENI?? hsv 1 NOT DETECT ED not detect ed Not Available [facility] (Lab) [address], [place], [address], 09/09/2023 18:03:02 09/03/2009/03/2023 HERPE S SIMPL EX VIRUS , TYPE 1 AND 2 MRNA, TMA,S URESW BENI?? hsv 2 NOT DETECT ED not detect ed Vulva Perfo rming Organ izati on Infor david n: Site ID: [place] Name: [facility] Addre ss: [address] [place] [address] Dire tor: [place] V Radha s Not Available [facility] (Lab) [address], [place], [address], 09/09/2023 18:03:02 09/03/2009/03/2023 HERPE S SUBTY PE(HS V1/HS V2) RT-PC R, ONESW AB herpes subtype (hsv-1, hsv-2) PCR Negati ve (HSV-1 ,HSV-2 ) Swab- 1 Vulva HSV-1 :Nega tive HSV-2 :Nega tive. Not Available [facility] (Lab) [address], [place], [address], 09/09/2023 18:03:02 09/03/2009/03/2023 pregn gabino test, urine HCG positi ve Not Available [place] [address], [place], [address], 09/03/2023 10:27:26 05/24/20 24 05/24/2024 HBSAG /HCV/ HIV/R UT hepatitis C antibody Non-re active non-re active Antib odies to HCV Not Detec jaqui, does not exclu de the possi bilit y of expos ure to HCV. Not Available [facility] (Lab) [address], [place], [address], 05/29/2024 20:13:31 05/24/20 24 05/24/2024 HBSAG /HCV/ HIV/R UT hepatitis B surface antigen Non-re active non-re active This assay was perfo rmed using [employer] reage nts and test kits. Value s obtai palmira with other assay metho ds or kits canno t be used inter [facility] . Not Available [facility] (Lab) [address] [facility], [place], [address], 05/29/2024 20:13:31 05/24/20 24 05/24/2024 HBSAG /HCV/ HIV/R UT HIV antigen/anti body Nonrea ctive nonrea ctive HIV-1 antig en and HIV-1 /HIV- 2 antib odies were not detec jaqui. No labor atory evide nce of HIV infec tion. Not Available [facility] (Lab) [address] [facility], [place], [address], 05/29/2024 20:13:31 05/24/20 24 05/24/2024 HBSAG /HCV/ HIV/R UT RPR screen Nonrea ctive nonrea ctive Not Available [facility] (Lab) [address] [facility], [place], [address], 05/29/2024 20:13:31 05/24/20 24 05/24/2024 PROGE STERO NE progesterone 0.36 NG/mL This assay was perfo rmed using [employer] reage nts and test kits. Value s obtai palmira with other assay metho ds or kits canno t be used inter [facility] joanne . Femal e Proge stero ne Range s: Folli cular phasE 0.06- 0.89 ng/mL Ovula tion phasE 0.12- 12.00 ng/mL Lutea l phasE 1.83- 23.90 ng/mL Postm enopa usal <0.05 -0.13 ng/mL Healt hy Pregn ant Women 1st Trime ster 11.0- 44.30 2nd Trime ster 25.40 -83.3 0 3rd Trime ster 58.70 -214. 00 Not Available [facility] (Lab) [address] [facility], [place], [address], 05/29/2024 20:13:32 05/24/20 24 05/24/2024 PROLA CTIN prolactin, total 19.50 NG/mL 4.79-2 3.30 This assay was perfo rmed using [employer] reage nts and test kits. Value s obtai palmira with other assay metho ds or kits canno t be used inter [facility] . Not Available [facility] (Lab) [address] [place], [address], 05/29/2024 20:13:32 05/24/20 24 05/24/2024 FSH, LH, ESTRA DIOL estradiol 48.0 pg/mL This assay was perfo rmed using [employer] reage nts and test kits. Value s obtai palmira with other assay metho ds or kits canno t be used inter [facility] . Femal e Estra diol Range s: Folli cular phasE 12.4- 233 pg/mL Ovula tion phasE 41.0- 398 pg/mL Lutea l phasE 22.3- 341 pg/mL Postm enopa usal <5-13 8 pg/mL Healt hy Pregn ant Women 1st Trime ster 154-3 243 pg/mL 2nd Trime ster 1561- 81119 pg/mL 3rd Trime ster 8525- >3000 0 pg/mL Not Available [facility] (Lab) [address] [place], [address], 05/29/2024 20:13:33 05/24/20 24 05/24/2024 FSH, LH, ESTRA DIOL FSH 7.0 mIU/m L This assay was perfo rmed using [employer] reage nts and test kits. Value s obtai palmira with other assay metho ds or kits canno t be used inter [facility] . Femal es Folli cular : 3.5-1 2.5 mIU/m L Ovula tion: 4.7-2 1.5 mIU/m L Lutea l: 1.7-7 .7 mIU/m L Postm enopa use: 25.8- 134.8 mIU/m L Not Available [facility] (Lab) [address] [facility], [place], [address], 05/29/2024 20:13:33 05/24/20 24 05/24/2024 FSH, LH, ESTRA DIOL LH 16.8 mIU/m L This assay was perfo rmed using [employer] reage nts and test kits. Value s obtai palmira with other assay metho ds or kits canno t be used inter [facility] . Femal es Mid-F ollic ular: 2.4-1 2.6 mIU/m L Mid-C ycle: 14.0- 95.6 mIU/m L Mid-L uteal : 1.0-1 1.4 mIU/m L Postm enopa use: 7.7-5 8.5 mIU/m L Not Available [facility] (Lab) [address] [facility], [place], [address], 05/29/2024 20:13:33 05/24/20 24 05/24/2024 TSH, REFLE X FREE T4 TSH 2.43 uIU/m L 0.30-5 .33 Not Available [facility] (Lab) [address] [facility], [place], [address], 05/29/2024 20:13:33 05/24/20 24 05/24/2024 HUMAN SEX HORMO NE AMOL NG GLOBU KARRIE sex hormone binding globulin 30.6 nmole s/L 18.2-1 35.5 Not Available [facility] (Lab) [address] [place], [address], 05/29/2024 20:13:34 05/24/20 24 05/24/2024 DHEA SULFA TE DHEA-sulfate 207 ug/dL Femal e Range s Age(y ) Range (ug/d L) 10-15 34-28 0 15-20 65-36 8 20-25 148-4 07 25-35 99-34 0 35-45 61-33 7 45-55 35-25 6 55-65 19-20 5 65-75 9-246 > 75 12-15 4 Not Available [facility] (Lab) [address] [facility], [place], [address], 05/29/2024 20:13:34 05/24/20 24 05/24/2024 TESTO STERO NE, FREE( DIALY SIS) AND TOTAL (LC/M S/MS) testosterone , total 32 NG/dL 2-45 For addit ional georger javi jacobson refer to http: //[facility] melinda storey.que stdia gnost ics.c om/fa q/ Total Testo stero neLCM SMSFA Q165 (This link is being provi ded for infor matcarrillo nal/ educa pavithra l purpo ses only. ) This test was devel oped and its abdifatah tical perfo rmanc e jr cteri stics have been deter mined by [employer] [facility] Dom [facility] [place] [place]. It has not been clear ed or appro raad by the U.S. Food and Drug Admin istra tion. This assay has been valid ated pursu ant to the CLIA regul ation s and is used for clini phnog purpo ses. Not Available [facility] (Lab) [address] [facility], [place], [address], 05/29/2024 20:13:34 05/24/20 24 05/24/2024 TESTO STERO NE, FREE( DIALY SIS) AND TOTAL (LC/M S/MS) testosterone , free 4.6 pg/mL 0.1-6. 4 This test was devel oped and its abdifatah tical perfo rmanc e jr cteri stics have been deter mined by [employer] Dom ls [employer] [facility] [facility], [place]. It has not been clear ed or appro raad by the U.S. Food and Drug Admin istra tion. This assay has been valid ated pursu ant to the CLIA regul ation s and is used for clini phong purpo ses. Perfo rming Organ izati on [facility] Carenathalia hernandez n: Site ID: [place] Name: [employer] [facility] Dom ls Astroi calvin Addre ss: [id number] [place], [place] Direc tor: Shelton Guerra MD PhD Not Available [facility] (Lab) [address] [facility], [place], [address], 05/29/2024 20:13:34 05/24/20 24 05/24/2024 VAGIN ITIS/ VAGIN OSIS, DNA PROBE stacie sp. detection, direct probe Negati ve negati ve Not Available [facility] (Lab) [address] [facility], [place], [address], 05/29/2024 20:21:54 05/24/20 24 05/24/2024 VAGIN ITIS/ VAGIN OSIS, DNA PROBE gardnerella vag. detection, direct probe Positi ve negati ve abnormal Not Available [facility] (Lab) [address] [facility], [place], [address], 05/29/2024 20:21:54 05/24/20 24 05/24/2024 VAGIN ITIS/ VAGIN OSIS, DNA PROBE trichomonas vag. detection, direct probe Negati ve negati ve Not Available [facility] (Lab) [address] [place], [address], 05/29/2024 20:21:54 05/24/20 24 05/24/2024 IMAGE GUIDE D PAP, REFLE X HPV IF ASCUS ONLY image guided Pap, reflex HPV ASCUS only SEE RESULT S BELOW CASE REPOR T: Cytol ogy Gynec ologi phong Repor t Case: [id number] Autho michael g Provi miky: Frederick Santillan MD Colle cted: 05/24 1715 Order ing Locat ion: [place] Patho log[facility] Recei raad: 05/26 1009 First Scree n: Gordy Sánchez , CT Speci men: Scree dickson Pap - Image d, Cervi x STATE MENT OF ADEQU ACY: Satis facto ry for evalu ation Trans forma tion zone compo nent prese nt ----- ----- ----- ----- ----- ----- ----- ----- ----- ----- ----- ----- ----- ----- ----- ----- ----- ---- FINAL DIAGN OSIS: Negat koki for Intra epith elial Lesio n or Lucius onofre (NIL) . Shift in mi sugge stive of bacte rial vagin osis. Elect fatou kamara by Gordy Sánchez CT on 024 at 7:19 PM ----- ----- ----- ----- ----- ----- ----- ----- ----- ----- ----- ----- ----- ----- ----- ----- ----- ---- COMME NT: This speci men was revie wed by a Cytot echno logis t and/o r Patho logis t (as indic ated in this repor t) after evalu ation using the Thinp rep Imagi ng Syste m. CLINI PHONG INFOR MATIO N: Menst rual Statu s: LMP (if appli cable ): Clini phong Histo ry/Pr eviou s Pap: Type of Neopl estrellita (if appli cable ): Signi fican t Clini phong Findi ngs: Other Histo ry: Hormo ira (if appli cable ): PAP EDUCA PAVITHRA L NOTE: The Pap Test is a scree dickson test with an inher ent false negat koki rate. Liqui d-bas ed sampl ing may decre ase, but will not elimi lucy, false negat koki resul ts. A negat koki resul t does not precl ude the prese nce and/o r devel opmen t of disea se, since the prese nce of abnor mal cells in the sampl e depen ds on the locat ion of the lesio n and sampl ing techn ique. Cherri nued regul ar scree dickson is the best metho d of cance r preve ntion . If repor jaqui cytol ogic findi ng do not corre late with physi phong and/o r histo rical findi ngs, ben rhoades ion is recom jaqueline d, as clini maite tiffanie nted. Not Available [facility] (Lab) [address] [facility], [place], [address], 05/29/2024 20:21:54 05/24/20 24 05/24/2024 TRICH OMONA S VAGIN WENDI (RRNA ) trichomonas vaginalis ribosomal RNA (rrna) Negati ve negati ve Not Available [facility] (Lab) [address] [facility], [place], [address], 05/29/2024 20:21:55 05/24/20 24 05/24/2024 CT/GC (BRUCE) , THINP REP VIAL chlamydia trachomatis, PCR Negati ve negati ve Not Available [facility] (Lab) [address] [facility], [place], [address], 05/29/2024 20:21:55 05/24/20 24 05/24/2024 CT/GC (BRUCE) , THINP REP VIAL neisseria gonorrhoeae, PCR Negati ve negati ve Not Available [facility] (Lab) [address] [facility], [place], [address], 05/29/2024 20:21:55 06/14/20 24 06/14/2024 US, pelvi s No observ ation record ed. [email or web address] [place] [address], [place], [address], 06/14/2024 13:07:03 06/14/20 24 06/14/2024 US, trans vagin al No observ ation record ed. [email or web address] [place] [address], [place], [address], 06/14/2024 13:06:53 06/14/20 24 06/14/2024 US, pelvi s No observ ation record ed. [email or web address] [address], [place], [address], 06/14/2024 18:14:35 Result Notes None recorded. Procedures Surgical History Date Name Laterality Status Provider Name and Address Organization Details Recorded Time 3 Control Implant Removal completed Yi Lucio MD [address], [place], [address], [facility] 03/12/2023 14:34:00 0 Control Implant Insertion completed Brigid Woods, [facility]- [address], [place], [address], [facility] 10/24/2020 11:46:36 Imaging Results Imaging Date Name Status LastModified by Organization Details LastModified Time 06/14/2024 US, pelvis completed [email or web address] [place] [address], [place], [address], 06/14/2024 13:07:03 06/14/2024 US, [facility]inal [email or web address] [address], [place], [address], 06/14/2024 13:06:53 06/14/2024 US, pelvis completed [email or web address] [address], [place], [address], 06/14/2024 18:14:35 Procedure Notes None recorded. Medical Equipment None Reported. Allergies No known drug allergies Medications Name Sig Start Date Stop Date Status Note LastModified by Organization Details LastModified Time amoxicillin 500 mg capsule TAKE 1 CAPSULE BY MOUTH THREE TIMES DAILY FOR 10 DAYS 08/04 completed Not Available Not Available Not Available fluconazole 150 mg tablet TAKE 1 TABLET BY MOUTH EVERY DAY FOR 1 DAY DIRECTED 09/03 completed Not Available Not Available Not Available valacyclovi r 1 gram tablet TAKE 1 TABLET BY MOUTH EVERY 12 HOURS FOR 7 DAYS 07/03 /2024 completed Not Available Not Available Not Available metronidazo le 0.75 % (37.5 mg/5 gram) vaginal gel INSERT ONE APPLICATO RFUL VAGINALLY AT BEDTIME FOR 5 DAYS 07/23 completed Not Available Not Available Not Available metronidazo le 500 mg tablet TAKE 1 TABLET BY MOUTH TWICE DAILY FOR 7 DAYS active Not Available Not Available No t Available sertraline 25 mg tablet TAKE 1 TABLET BY MOUTH DAILY 07/23 completed Not Available Not Available Not Available hydroxyzine HCl 25 mg tablet TK 1-2 TS PO HS PRN 07/23 completed Not Available Not Available Not Available Vitamin D2 1,250 mcg (50,000 unit) capsule Take 1 capsule every week by oral route for 90 days. 07/23 completed Not Available Not Available Not Available nitrofurant oin monohydrate /macrocryst als 100 mg capsule TAKE 1 CAPSULE BY MOUTH EVERY 12 HOURS WITH MEALS FOR 7 DAYS 09/03 completed Not Available Not Available Not Available Zoloft 07/23 completed Not Available Not Available Not Available hydroxyzine HCl 07/23 completed Not Available Not Available Not Available aripiprazol e 2 mg tablet TAKE 1 TABLET BY MOUTH EVERY MORNING 07/23 completed Not Available Not Available Not Available Nexplanon 68 mg subdermal implant nexplanon insert 03/12 completed Not Available Not Available Not Available Vitals Date Recorded Body height Body mass index (BMI) Body mass index (BMI) Percentile per age and sex Body weight Systolic blood pressure Diastolic blood pressure Provider Name and Address Organization Details Last Updated DateTime 3 170.18 cm 21.3 kg/m2 44 % 69104.5 6 g 115 mm[Hg] 73 mm[Hg] Ita Hardy [facility] 3 16:20:34 Date Recorded Body height Body mass index (BMI) Body mass index (BMI) Percentile per age and sex Body weight Systolic blood pressure Diastolic blood pressure Provider Name and Address Organization Details Last Updated DateTime 3 170.18 cm 22.2 kg/m2 55 % 80201.4 g 124 mm[Hg] 76 mm[Hg] Nikki Kilgore [facility] 3 09:54:17 Date Recorded Body height Body mass index (BMI) Body weight Systolic blood pressure Diastolic blood pressure Provider Name and Address Organization Details Last Updated DateTime 05/24/2024 170.18 cm 21.9 kg/m2 78476.49 g 112 mm[Hg] 74 mm[Hg] [facility] 4 12:08:38 Date Recorded Body height Body mass index (BMI) Body weight Systolic blood pressure Diastolic blood pressure Provider Name and Address Organization Details Last Updated DateTime 06/14/2024 170.18 cm 21.4 kg/m2 20925.44 g 117 mm[Hg] 70 mm[Hg] [facility] 4 12:48:17 Social History Question Answer Notes LastModified by Organizat ion Details LastModified Time Tobacco Smoking Status Current Every Day Smoker Ita lynch, [facility] 08/04/2023 16:21:54 Do You Have An Advance Directive? No Information not available 12/30/2022 What Is Your Level Of Alcohol Consumption? None Information not available 08/04/2023 How Many Years Have You Consumed Alcohol? 4 Information not available 08/04/2023 Are You Blind Or Do You Have Difficulty Seeing? No Information not available 12/30/2022 What Is Your Level Of Caffeine Consumption? Heavy Information not available 08/04/2023 How Much Tobacco Do You Chew? None Information not available 12/30/2022 In The 14 Days Before Symptom Onset, Have You Had Close Contact With A Laboratory-confir med COVID-19 While That Case Was Ill? No Information not available 12/30/2022 In The 14 Days Before Symptom Onset, Have You Had Close Contact With A Person Who Is Under Investigation For COVID-19 While That Person Was Ill? No Information not available 12/30/2022 Have You Been To An Area Known To Be High Risk For COVID-19? No Information not available 12/30/2022 Are You Deaf Or Do You Have Serious Difficulty Hearing? No Information not available 12/30/2022 What Type Of Diet Are You Following? REGULAR Information not available 12/30/2022 Do You Or Have You Ever Used E-cigarettes Or Vape? Current User Of Electronic Cigarettes Information not available 08/04/2023 What Is The Highest Grade Or Level Of School You Have Completed Or The Highest Degree You Have Received? 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 Yes Information not available 12/30/2022 Do You Use Protection During Sex? Usually Information not available 12/30/2022 Do You Use Your Seat Belt Or Car Seat Routinely? Yes Information not available 12/30/2022 Do You Have Smoke And Carbon Monoxide Detectors In Your Home? Yes Information not available 12/30/2022 At What Age Did You Start Smoking Tobacco? 12 Information not available 08/04/2023 How Much Tobacco Do You Smoke? 2 PPW Information not available 08/04/2023 Do You Feel Stressed (tense, Restless, Nervous, Or Anxious, Or Unable To Sleep At Night)? [id number] Information not available 08/04/2023 Do You Use Any Illicit Or Recreational Drugs? Yes Information not available 12/30/2022 Do You Use Sunscreen Routinely? Yes Information not available 08/04/2023 How Many Years Have You Smoked Tobacco? 6 Information not available 08/04/2023 Have You Used IV Drugs? No Information not available 12/30/2022 Do You Or Have You Ever Used Any Other Forms Of Tobacco Or Nicotine? Yes Information not available 08/04/2023 Sex: Unknown Functional Status Question Answer Note LastModified by Organizat ion Details LastModified Time Do you have difficulty walking or climbing stairs? No Information not available 08/04/2023 Are you able to walk? YESWOREST Information not available 12/30/2022 Are you able to care for yourself? Yes Information not available 08/04/2023 Do you have difficulty dressing or bathing? No Information not available 08/04/2023 What is your exercise level? Moderate Information not available 12/30/2022 Mental Status None recorded. Family History Relationship Description Onset Age of this Age Resolved Age Notes LastModified by Organization Details LastModified Time Maternal Grandmother Asthma [email or web address] Not available 2019 13:56:20 Paternal Grandmother Hypercholest erolemia [email or web address] Not available 2019 13:56:36 Father Hypertensive disorder [email or web address] Not available 2019 13:56:49 Paternal Grandfather Hypertensive disorder [email or web address] Not available 2019 13:56:49 Medical History Condition Response Anxiety Disorder Y Gynecological History Statement/Question Response Flow Moderate Date of LMP 05/01/2024 N Was last menstrual period normal Y STIs/STDs N HPV Vaccine N Current Control Method None Date of control 10/24/2020 Are cycles usually normal Y Frequency of Cycle (Q days) 8 Sexually Active? Y Menses Monthly Y Age of first menstrual cycle 11 Date of Last Pap Smear Sexual Problems? Y LMP Definite N Obstetrics History GPAL:G 1 P 0 0 1 0 Type Value Induced 1 Total 1 Past Encounters Encounter ID Performer Location Encounter Start Date Encounter Closed Date Diagnosis/Indication Diagnosis SNOMED-CT Code Diagnosis ICD10 Code Diagnosis Note [id number] [facility] [address] [address] 10/22/2020 13:44:19 10/22/2020 15:42:53 Irregular periods 96364870 N92.6 Cultures sent for abn d/c including std screen. Labs done for irregular cycles. Moving forward can pursue TVUS if necessary. Counseled on importance of monthly or q3mos periods to avoid precancers /cancers; and to ensure no . Understand ing verbalized . [facility] ion care management [id number] Z30.9 Since we do not know exact date she will start next cycle we agreed to HCG serum test & if neg can place device wed/thurs/ sat of this week. Patient is here currently on her menses. She was given all the r/b/a of placement of the Nexplanon device and has signed the consent. She is fully aware of all possible side effects of the device and has decided to move forward with placement. Insertion site was cleansed with betadine and 3cc lidocaine used for anesthesia . Device was placed in the left arm per usual fashion w/o complicati on and patient instructed to f/u in one month or earlier if there are any si/sx of infection or hypersensi tivity at the insertion site RTO this week for placement as long as HCG serum is neg. [id number] Brigid Woods [facility] [address],[place] [address] 10/24/2020 11:19:08 10/24/2020 11:47:10 Contraception care management 475094825 Z30.9 Bacterial vaginosis 4197 33931 N76.0 Flagyl sent for +BV. Vitamin D deficiency 347 13880 E55.9 50,000 units weekly x 3mos then will r/p labs when returns in 3mos. Insertion of subcutaneous contraceptive 864993882 Z30.9 Patient is here currently on her menses. She was given all the r/b/a of placement of the Nexplanon device and has signed the consent. She is fully aware of all possible side effects of the device and has decided to move forward with placement. Insertion site was cleansed with betadine and 3cc lidocaine used for anesthesia . Device was placed in the left arm per usual fashion w/o complicati on and patient instructed to f/u in one month or earlier if there are any si/sx of infection or hypersensi tivity at the [place] [id number] Yi Lucio MD [place] [address],[place] [address] 07/23/2021 14:17:03 07/23/2021 15:52:57 [id number] Yi Lucio MD [place] [address],[place] [address] 03/12/2023 14:03:39 03/12/2023 14:35:48 Removal of subcutaneous contraceptive 478819795 Z30.46 [id number] Brigid Woods [facility] [address],[place] [address] 12/30/2022 11:51:14 12/30/2022 12:29:24 Gynecologic examination 16788436 Z01.419 Take Calcium with Vitamin D 1200mg daily if not receiving in daily diet. It is strongly advised to have an annual flu shot and up can obtain at most pharmacies . If you have not had a TDap shot in the last 10 years you should obtain one as well. Discussed with patient & provided with informatio n regarding Gardisil vaccine to prevent the 4 strains for HPV that cause cervical cancer. Encourage safe sexual practices, to use condoms and limit partners if not already in a monogamous relationsh ip. Do monthly self breast exams. BRCA testing is now available for patients with strong genetic history of female cancer. If interested contact the office. Engage in daily exercise of low impact aerobic exercise 45-60 minutes 4-5 times weekly. Avoid tobacco, illicit drugs, and alcohol. This lifestyle behavior pattern will lead to less health conditions and longer life span. If BMI greater than 25 weight watchers or dietary consult advised. Pap smear is not recommende d prior to the age of 21. If you have any concerns, pelvic, or vaginal problems we can discuss testing. Patient received above instructio ns, and questions have been answered. If you have any questions please call or respond to this email. Patient was made aware of the patient portal and may obtain a paper copy of today's plan if desired.Guido armstrong at 19yo STD Screen sent urine Genetic Screen discussed Colon Screen na Dexa Screen na Routine Labs PCPNexplan on intact & happy with this device. Mass of left breast 1224 506157 1638696 N63.20 Left outer quadrant breast lump felt on examThere for >30dUS orderedWil l reach out with results & next steps POC [id number] [facility] [address] [address] 08/04/2023 16:12:51 08/04/2023 16:51:50 Urinary symptoms [id number] R39.9 Suspect UTI on urine dip today post-coita lly.Rx sent Counseled on medication R/B's, Most common side effects, & use. All questions were answered to patient satisfacti on. Time spent in visit is a total of 15 mins with at least 50% of visit consisting of counseling and review of plan of care. Vaginitis 70447015 N76.0 Will send swab to confirm BV/Yeast/O ther std prior and await results prior to additional treatment. [id number] AVIVA Ricketts [place] [address] [address] 09/03/2023 09:51:31 09/03/2023 13:34:07 Primary herpes simplex infection of genitalia 655406205 A60.00 Suspect primary HSV outbreakHS V PCR sentgc/ct/ trich testing sentrx sent, r/b/aabsta in from IC until symptoms resolve, condom use encouraged otherwise( +) UPTpt does not plan to continue with the , she has a EAB scheduledw e discussed BC options after EAB, plans for nexplanons he will RTC for nexplanon insertion Time spent in visit is a total of 45 mins with at least 50% of visit consisting of counseling and review of plan of care. Urine preg [place] test positive 515280024 Z32.01 Unprotecte d sexual intercourse 8959516 Z72.51 Venereal d isease screening 354453306 Z11.3 Contracept ion care management 457405541 Z30.9 [id number] BRITT MAIER MD [place] [address] [address] 05/24/2024 11:52:38 05/24/2024 12:34:09 Venereal disease screening 995112414 Z11.3 Abnormal u terine bleeding 1353280463 9100 N93.9 - reports irregular periods since November- no inciting events or change in medication s- will reevaluate after labwork Vaginitis 25544359 N76.0 - swab sent, will follow up on results as available Gynecologi c examination 94337546 Z01.419 Well woman care- Cervical cancer screening: Pap smear obtained today, will follow up on the results with the patient as they become available- Breast cancer screening: mammogram not indicated- Colon cancer screening: does not qualify- HPV immunizati on: desires, discussed vaccine schedule and to go to pharmacy to receive it- STD testing: desires- hereditary cancer screening: does not qualify for testing Cindy Pelaez [place] [address] [address] 06/14/2024 11:50:59 06/14/2024 12:46:49 Abnormal uterine bleeding 9750740405 9100 N93.9 R10.2 [id number] BRITT MAIER MD [place] [address] [address] 06/14/2024 12:32:06 06/15/2024 09:23:43 Polycystic ovary syndrome 826075687 E28.2 - diagnosed by oligomenor ruthann and polycystic appearing ovaries on US- labs wnl- discussed diagnosis of PCOS and implicatio ns including increased risk for HTN, T2DM, and hyperlipid emia-recom mend cycle control with either hormonal contracept ion or cyclic provera- discussed risks of oligomenor ruthann including endometria l hyperplasi a and EIN- patient voices understand ing, leaning towards OCPs, will call when she has decided- rtc for WWE in 1 year Health Concerns Section Related Observation LastModified by Organization Detai ls LastModified Time None Recorded Concern Status LastModified by Organization Details LastModified Time None Recorded Advance Directives Directive N: Payers Encounter Date Sequence Insurance Name Policy Number Policy Brown Covered Member ID Brown Member ID Guarantor Name 08/04/2023 1 [employer] - [employer] PRIOR TO 11.22.2023 [id number] Kevin Penny [id number] Nuris I Hedger 09/03/2023 1 [employer] - [employer] PRIOR TO 11.22.2023 [id number] Kevin Penny [id number] Nuris I Hedger 05/24/2024 1 [employer] - [employer] - [employer] PRIOR TO 11.22.2023 [id number] Kevin Penny [id number] Nuris I Hedger 06/14/2024 1 [employer] - [employer] PRIOR TO 11.22.2023 [id number] Kevin Penny [id number] 6 Nuris I Hedger 06/14/2024 1 [employer] - [employer] PRIOR TO 11.22.2023 [id number] Kevin Penny [id number] 6 Nurisrandy Sorenson Notes Date Note Type Note Provider Name and Address Organization Details Recorded Time 08/04/2023 text/html Vaginal/Vulvar ProblemReported bypatient.Notes:Here today for complaints of vag d/c, itching urinary sx's post-IC from wednesday. Neg pain of abd/pelvis/flank+ urinary sx'sNeg GI sx'sNeg N/V/F/C/DNeg Vag odor AVIVA Moy- [address], [place], [address], [facility] 08/04/2023 16:47:54 09/03/2023 text/html 18yopresents for evaluation of vulvar lesionssymptoms started 3-4 days agoburning, pain, lesionsfeels like she cut the vulvaLMP 07/24/2023She took an at home UPT 1 week ago that was (+)has an appointment for a EAB next week, she does not want to continue with this pregnancyneg d/c, itching, odorsneg pelvic painneg vaginal bleeding AVIVA Ricketts [address], [place], [address], [facility] 09/03/2023 13:27:57 05/24/2024 text/html Presents today f or her annual well-woman exam. Reports abnormal vaginal discharge for 1 month. She is sexually active and denies dyspareunia. She is not using contraception, considering starting control. Does use condoms. She has not noticed any changes or masses in her breasts. LMP 05/01/24. Periods are somewhat irregular, skipped 3 months from Nov to January as well as March. Had a very heavy period in April. BRITT MAIER MD [address], [place], [address], [facility] 05/24/2024 12:28:18 06/14/2024 text/html Patient presents for follow up of irregular bleeding. Has had cycles up to 3 months in length. Had heavy period in April, has not had any bleeding since then. Not currently on contraception, not interested in at this time. No abdominal pain. BRITT MAIER MD [address], [place], [address], [facility] 06/14/2024 18:02:00 OBGyn Episode Ob Episode Information Episode Created Date Number of Fetuses Patient Bloodtype Patient rh Status Prepregnancy Weight lbs Domestic Partner Domestic Partner Phone Father Name Sales Service Rep Status 05/24/20 24 1 CLOSED Fetus Data First Name Last Name Admitted to NICU Weight (g) Sex Living Outcome Pediatric Complications Fetus ID Race Codes Race Delivery Type , Induced [id number] Mychal Calculation Initial Mychal Date Initial Exam [...]
--- OUTSIDE RECORDS SUMMARY | 2024-11-29 10:30 | XMS_ITS | Patient Health Summary ---
Author Organization [facility] Address [address] [place] [address] Care Team Providers Care Cloth Feeder Name Role Phone Brigid Woosd CENTRAL OFFICE OPERATOR-COMMUNICATION TECHNICIAN Unavailable Note from [facility],non-owned Affiliates and Associated Physician Practices is amultiple site organization consisting of ambulatory clinics and hospital sitesin [place], [place], [place] and [place]. This disclosure is being madepursuant to the Care Everywhere program and may not contain all information available regarding this patient. Last updated 18.[facility] Allergies No known active allergies Medications * Be aware that medications may not be up to date on this document. Alwaysverify current medications with the patient. * azithromycin (ZITHROMAX) 200 MG/5ML SUSR suspension(Started 11/13/2014) 2 tsp po q day for 5 days * cetirizine (ZYRTEC) 10 MG chew tablet(Started 02/12/2015) Take 1 Tab by mouth at bedtime. Social History Tobacco Use Types Packs/Day Years [...] AM CDT Body Mass Index - - Procedures * US BREAST LEFT COMPLETE(Performed 01/21/2023) Results * US BREAST LEFT COMPLETE (01/21/2023) Anatomical Region Laterality Modality Breast Left Ultrasound Scanned Document US ORDERABLES Care Teams Cloth Feeder Relationship Specialty Start Date End Date Brigid Woods, CENTRAL OFFICE OPERATOR-COMMUNICATION TECHNICIAN [address] [place] [id number] Nurse Practitioner 03/12/23
--- OUTSIDE RECORDS SUMMARY | 2024-11-29 10:30 | XMS_ITS | Encounter Summary ---
Author Organization [facility] Address [address] [place] [address] Care Team Providers Care Senior Business Intelligence Analyst Name Role Phone Brigid Woods APRN-FERMENTER Unavailable Reason for Visit * Reason Comments Establish Care Encounter Details Date Type Department Care Team (Late st Contact Info) Description 03/15/2023 11:00 AM CDT Office Visit [facility] - Surgery [address], [address] [place] [address] Catina Poon MD [address] [facility] [address] [place], [place] [id number] Mass of upper outer quadrant of left breast (Primary Dx); Fibrocystic disease of left breast Social History Tobacco Use Types Packs/Day Years [...] 6.4 oz) 03/15/2023 11:53 AM CDT Height - - Body Mass Index - - documented in this encounter Progress Notes * Catina Poon MD - 03/15/2023 11:00 AM CDT Images from the original note were not included. History and Physical Chief Complaint/History of Present Illness Here for possible mass of the left breast noted on self exam. Notes indicate that on exam this was located in the left upper outer quadrant, and was tender and mobile in surrounded by thick breast tissue as described on recent examination. Recent imaging did not reveal any findings on ultrasound. Per referral notes, when she was called with this result, it was reported that patient stated that the mass has gotten larger on self exam and was now in the size of an egg, so she requested referral to a specialist. Now she says it does seem a bit smaller, thinks it varies with her cycle. Has recently had her implanted control device removed from her arm thinking this might be hormone related. BOILER TECHNICIAN dianne acevedo, [facility] Warm/tender touch She has no previous history of any breast biopsies or breast surgeries. Imagin01/21/23 Left breast complete ultrasound at [facility] in [place], [place]. Findings-no suspicious mass or shadowing is detected. No cyst identified. [id number] category 1-negative Breast Cancer Risk Assessment and Family Cancer History: Calculated 03/14/2023 using CREDIT ASSOCIATE Risk Assessment Program Family History Problem Relation Name Age of Onset ??? Thyroid Disease Paternal Grandmother ??? Thyroid Disease Maternal Grandmother No past medical history on file. No past surgical history on file. Current Outpatient Medications Medication Sig Dispense Refill ??? azithromycin (ZITHROMAX) 200 MG/5ML SUSR suspension 2 tsp po q day for 5 days 50 mL 0 ??? cetirizine (ZYRTEC) 10 MG chew tablet Take 1 Tab by mouth at bedtime. 12 Tab 0 No current facility-administered medications for this visit. No Known Allergies Social History reports that she has never smoked. She has never used smokeless tobacco. She reports current drug use. Drug: Marijuana. She reports that she does not drink alcohol. Review of Systems General ROS: negative Psychological ROS: negative Ophthalmic ROS: no recent vision changes ENT ROS: Negative, no palpable adenopathy in the neck or supraclavicular areas Allergy and Immunology ROS: negative Hematological and Lymphatic ROS: negative, no palpable adenopathy in the neck or supraclavicular areas Endocrine ROS: negative Breast ROS: positive for left breast mass Respiratory ROS: no cough, shortness of breath, or wheezing Cardiovascular ROS: no chest pain or dyspnea on exertion Gastrointestinal ROS: no abdominal pain, change in bowel habits, or black or bloody stools Genito-Urinary ROS: no dysuria, trouble voiding, or hematuria Musculoskeletal ROS: negative Neurological ROS: no TIA or stroke symptoms Dermatological ROS: negative Exam Vitals: 03/15/23 1153 BP: 120/60 Pulse: 83 Temp: 99.5 ??F (37.5 ??C) SpO2: 99% Weight: 61.4 kg (135 lb 6.4 oz) Physical Exam Constitutional: She is oriented to person, place, and time and well-developed, well-nourished, and in no distress. HENT: Head: Normocephalic and atraumatic. Eyes: Conjunctivae are normal. Pupils are equal, round, and reactive to light. Neck: Normal range of motion. Neck supple. Cardiovascular: Normal rate and regular rhythm. Pulmonary/Chest: Effort normal and breath sounds normal. Abdominal: Soft. Musculoskeletal: Normal range of motion. Neurological: She is alert and oriented to person, place, and time. Skin: Skin is warm and dry. Psychiatric: Affect normal. Lymph - No adenopathy in supraclavicular or cervical lymph nodes Breast exam: Left breast - slightly denser more fibrous tissue in the left upper outer quadrant, but no masses in breast or axilla, no skin or nipple changes Right breast - no masses in breast or axilla, no skin or nipple changes Ultrasound done in office 03/15/2023 Left breast - No mass or cyst over palpable focally dense area.Appears to be fibrocystic tissue throughout this area. Assessment and Plan Possible mass left upper outer quadrant, more likely focally dense fibrocystic tissue. Reviewed ultrasound images and repeated ultrasound today, no suspicious findings warranting biopsy or further follow up at this time. Offered follow up in 3-6 months if this persists or worsens or sooner if it seems to enlarge sooner. For now, she is reassured by all this and will monitor on her own and come back as needed if she feels it worsens or persists. Reviewed risk factors and not high risk enough to have indication for MRI or other high risk screening. Family history reviewed, no family history of cancers to indicate early breast cancer high riskscreening. Recommend annual screening mammogram to start no later than age 40, annual physician physical exam and monthly self exams for now. Return at any time for re-evaluation if any new breast concerns. documented in this encounter Plan of Treatment Not on file documented as of this encounter Goals Goal Patient Goal Type Associated Problems Recent Progress Patient-Stated? Author Use safety retraint in car Lifestyle On track( 015 10:40 AM CDT) Beth Patel RN documented as of this encounter Visit Diagnoses Diagnosis Mass of upper outer quadrant of left breast- Primary Fibrocystic disease of left breast Diffuse cystic mastopathy documented in this encounter Care Teams Senior Business Intelligence Analyst Relationship Specialty Start Date End Date Brigid Woods, ASSISTED LIVING EXECUTIVE DIRECTOR-FERMENTER [address] [place] [address] Nurse Practitioner 03/12/23 documented as of this encounter
--- OUTSIDE RECORDS SUMMARY | 2024-11-29 10:30 | XMS_ITS | Encounter Summary ---
Author Organization [facility] Address [address] [place] [address] Phone Care Team Providers Care Environmental Change Analyst Name Role Phone Drew Reilly MD Primary Care Provider Reason for Visit * Consultation (Routine) - Closed Specialty Diagnoses / Procedures Referred By Jonathan robledo Referred To Contact Plastic Surgery Diagnoses Drew Dodge MD Phone: tel: fax: [facility] (All Locations) Referral ID Status Reason Start Date Expiration Date V isits Requested Visits Authorized [id number] Closed Specialty Services Required 01/07/2023 02/06/2024 99 99 Encounter Details Date Type Department Care Team (Latest Contact Info) Description 08/13/2023 9:00 AM CDT Procedure visit [facility] Surgery [address] [facility] 6th [place] [address] [place] [address] Bailey De La Torre, AGNES [address] [place] [address] Jayden (Primary Dx) Social History Tobacco Use Types Packs/Day Years Used Date Smoking Tobacco: Never Comments Unknown Sex and Gender Information Value Date Recorded Sex Assigned at Not on file 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 Excision of lesion 1.5x1.5cm 2. Closure 1 cm 3. Kenalog injection PERIOPERATIVE MEDICATION: None INTRAOPERATIVE MEDICATIONS: None POSTOPERATIE MEDICATIONS: None PROCEDURE: After a thorough discussion of the risks including bleeding, scarring, nerve injury, asymmetry,wound dehiscence, potential benefits, and alternatives of the procedure, informed consent was obtained. The lesion was marked for an elliptical excision along relaxed skin tension lines with a 1 cm margin. It was anesthetized with 1% lidocaine with 1 100,000 of epinephrine. It was prepped and draped inthe usual sterile fashion. A 15 C blade was used to excise the margins of the lesion. It was excised full- thickness and sent to pathology. The wound was then closed with 4.0 chromic sutures. Area wasthen injected with .5cc Kenalog 40. Closure was tension free and the aesthetic outcome was good. Bacitracin was applied. COMPLICATIONS: none COMMENT: Patient tolerated procedure well. Instructions for care were given to the patient. Follow-up pathology results. Return to clinic prn. - pt did get lightheaded and vomited half way through procedure, procedure was paused and resumed once pt had some water and felt better. documented in this encounter Miscellaneous Notes * Addendum Note - Jennifer Rader RN - 08/13/2023 9:00 AM CDTAddended by: JENNIFER RADER on: 08/13/2023 12:55 PM Modules accepted: Orders documented in this encounter Plan of Treatment Not on file documented as of this encounter Results * Surgical pathology (08/13/2023 12:00 AM CDT) Tissue (Skin, excision) 08/13/2023 08/16/2023 9:46 AM CDT [facility] - 08/18/2023 3:08 PM CDT [facility] results best viewed via link to PDF [facility] [address] [place] [address] , ??[place] [address] ? [email or web address] Note to Patients: ??This report may contain a detailed description of human tissue sent by a health care provider to the laboratory for pathologic evaluation. ??The content of this report is essential for diagnosis and may provide important critical findings. ??This information may be unfamiliar to patients to review without a medical professional present. ?? It is advised that the patient review this report in the presence of a health care provider who can answer questions and explain the details. FINAL REPORT Patient Information: PATIENT NAME: ??KATYA SORENSON I. ? SEX: ??F ? : ??2005 (Age: 18) ? Specimen Information: COLLECTED: ??08/13/2023 ? RECEIVED: ??08/16/2023 ? REPORTED: ??08/18/2023 ? Submitting Physician Information: ANA Myers [address] ??[id number] , ? DERMATOPATHOLOGY REPORT RESULTS ?? DIAGNOSIS: SKIN, LEFT EAR, EXCISION: ? KELOID exr/ajrr By this signature, I attest that the above diagnosis is based upon my personal examination of the slides(and/or other material indicated in the diagnosis). Ozzie Calvert M.D. ?? Report Electronically Reviewed and Signed Out By ??Ozzie Calvert M.D. 08/18/2023 15:08:24 CLINICAL INFORMATION NOT SPECIFIED SPECIMEN DATA MICROSCOPIC DESCRIPTION: Thick, pink, glassy collagen bundles are arranged in nodules surrounded by a proliferation of fibroblasts and small blood vessels. (L91.0) GROSS DESCRIPTION: Received in a formalin-containing bottle is a superficial fragment of pale thakkar, dome-shaped, and slightly wrinkled skin measuring 1.8 by 1.8 by 1.1 cm. The surgical margin is inked blue. The specimen is sectioned into 7 pieces and submitted entirely in 3 cassettes. Due to shrinkage, measurements may be different than those at time of procedure. ag/anc ICD-9 A; ZSD.902 ? Clerical Data A; 24752 The Characteristics of some immunohistochemical and immunofluorescence stains as well as in-situ hybridization tests were determined by the [facility] in ongoing quality systems manager and in compliance with regulations drawn from the Clinical Laboratory Improvement Act of 1988 (CLIA '88). These tests may rely on the use of analyte specific reagents that are subject to specific labeling requirements by the US FDA, and may only be performed in a facility that is certified by the [facility] as a high-complexity laboratory under CLIA '88. ??These tests are used for clinical purposes and are not investigational. ??For lab developed tests, the validation has been reviewed; the performance is considered acceptable for patient testing. 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
--- OUTSIDE RECORDS SUMMARY | 2024-11-29 10:30 | XMS_ITS | Encounter Summary ---
Author Organization [facility] Address [address] [facility] [place] [address] Care Team Providers Care Prison Classification Counselor Name Role Phone Drew Reilly MD Primary Care Provider [phone] Reason for Visit * Reason Onset Date Comments Question 09/21/2014 Encounter Details Date Type Department Care Team (Late st Contact Info) Description 09/21/2014 Telephone [facility] - Pediatrics [address] [place] [address] [address] [place] [address] Drew Reilly MD [address] [place] [phone] Question Social History Tobacco Use Types Packs/Day Years Used Date Smoking Tobacco: Never Assessed Sex and Gender Information Value Date Recorded Sex Assigned at Not on file Gender Identity Not on file Sexual Orientation Not on file documented as of this encounter Miscellaneous Notes * Telephone Encounter - Juan Lane - 09/21/2014 3:32 PM CDT Mom called and wanted to know of a counselor or psychiatrist that Brittney could talk to. Mom didn't know who you would recommend. documented in this encounter Plan of Treatment Not on file documented as of this encounter Visit Diagnoses Not on filedocumented in this encounter Care Teams Prison Classification Counselor Relationship Specialty Start Date End Date Drew Reilly MD [address] [place] [address] [place], [place] [id number] PCP - General 12/03/09 02/11/15 documented as of this encounter
--- OUTSIDE RECORDS SUMMARY | 2024-11-29 10:30 | XMS_ITS | Encounter Summary ---
Author Organization [facility] Address [address] [facility] [place] [address] Care Team Providers Care Banana Expert Name Role Phone Philomena Granados MD Primary Care Provider [phone] Reason for Visit * Reason Comments Sore Throat sore throat and naus ea x 2 days. No headache. No fever. No uri s/s. Encounter Details Date Type Department Care Team (Late st Contact Info) Description 02/12/2015 10:30 AM CDT Office Visit [facility] - Pediatrics [address] [place] [address] Philomena Granados MD [address] [place] [address] Pharyngitis, acute (Primary Dx) Social History Tobacco Use Types Packs/Day Years Used Date Smoking Tobacco: Never Assessed Sex and Gender Information Value Date Recorded Sex Assigned at Not on file Gender Identity Not on file Sexual Orientation Not on file documented as of this encounter Last Filed Vital Signs Vital Sign Reading Time Taken Comments Blood Pressure - - Pulse - - Temperature 37.1 ??C (98.7 ??F) 02/12/2015 1 0:39 AM CDT Respiratory Rate - - Oxygen Saturation - - Inhaled Oxygen Concentration - - Weight 54.5 kg (120 lb 3.2 oz) 02/13/20 15 10:39 AM CDT Height 160 cm (5' 3 ) 02/12/2015 10:39 AM CDT Body Mass Index 21.29 02/12/2015 10:39 AM CDT Body Mass Index Percentile 83.74% 02/12 10:39 AM CDT Growth Chart: [facility] (Girls, 2- 20 Years) documented in this encounter Progress Notes * Philomena Granados MD - 02/12/2015 10:42 AM CDT Nuris Sorenson. 9 y.o., female, here for evaluation of sore throat. Symptoms started 2 days ago. Fever: No Runny Nose: Yes, mild, sniffles Congestion: No Cough: No, Headache: No Abd Pain: +nausea Rash: No Sleep: good Appetite: good Fluids: good Sick contacts with Strep: No Medications: none PE: Temp(Src) 98.7 ??F (Temporal Artery) Wt 54.522 kg (120 lb 3.2 oz) BMI 21.30 kg/m2 Alert NAD SHEENT: Skin: no observable rash Ears: Left: Normal Right: Normal Throat:injected Tonsils: mild erythema, no exudates Neck: normal, neck supple, trachea midline, no significant adenopathy Heart: normal S1, S2, no murmurs or gallops. Lungs: Clear to auscultation and Normal breath sounds bilaterally Impression: 1 Pharyngitis -viral vs allergy sx Plan: samples zyrtec given. 1 tab at night encourage fluids. Follow up prn. documented in this encounter Plan of Treatment Not on file documented as of this encounter Goals Goal Patient Goal Type Associated Problems Recent Progress Patient-Stated? Author Use safety retraint in car Lifestyle On track( 015 10:40 AM CDT) No Beth Kelley RN documented as of this encounter Visit Diagnoses Diagnosis Pharyngitis, acute- Primary Acute pharyngitis documented in this encounter Care Teams Banana Expert Relationship Specialty Start Date End Date Philomena Granados MD PCP - General Pediatrics 02/12/15 01/03/18 documented as of this encounter
--- OUTSIDE RECORDS SUMMARY | 2024-11-29 10:30 | XMS_ITS | Clinical Summary ---
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 Gender Identity Not on file Sexual Orientation Not on file Obstetrics History Last Filed Vital Signs Vital Sign Reading Time Taken Comments Blood Pressure 112/78 12/22/2012 9:30 AM HAT CONDITIONER Pulse - - Temperature - - Respiratory Rate - - Oxygen Saturation - - Inhaled Oxygen Concentration - - Weight 43.1 kg (94 lb 15.9 oz) 12/22/2012 9:30 A M HAT CONDITIONER Height 144.8 cm (4' 9 ) 12/22/2012 9:30 AM HAT CONDITIONER Body Mass Index 20.56 12/22/2012 9:30 AM HAT CONDITIONER Plan of Treatment Health Maintenance Due Date Last Done Comments Cervical Cancer Screening 2003 Depression Screening 2003 Hepatitis C Screening 2003 DTaP/Tdap/Td Vaccine (6 - Tdap) 2014 06/04/2008, 08/08/2004, 2003, Additional history exists HPV Vaccines (1 - 3-dose series) 2018 Meningococcal B Vaccine (1 of 2 - Patient Seeks Protection) 2019 Regular Well Visit/Exam 18-64 2021 Influenza Vaccine (#1) 2024 3, 2003, 2003 Pneumococcal vaccine <65 Completed 004, 2003, 2003, Additional history exists Varicella Vaccines Completed 01/14/2019, 0 06/04/2008, 05/09/2004 Meningococcal Vaccine Aged Out No nile prema eligible based on patient's age to complete this topic Insurance [facility] H[facility]/PPO Address: [address] [address] Care Teams Deputy Jailer Relationship Specialty Start Date End Date Drew Reilly MD PCP - General Pediatrics 01/07/23
--- OUTSIDE RECORDS SUMMARY | 2024-11-29 10:30 | XMS_ITS | Encounter Summary ---
Author Organization [facility] Address [address] [facility] [place] [address] Care Team Providers Care Secretary To Board Of Commissioners Name Role Phone Unavailable Primary Care Provider Unavailabl e Encounter Details Date Type Department Care Team (Late st Contact Info) Description 11/28/2009 12:04 PM TRIPE WASHER - 11/28/2009 12:05 PM [facility] Hospital Encounter Donna Macias, CYTOLOGY TEACHER-SPINDLE REPAIRER [address] [place] [address] Medical Inpatient Social History Tobacco Use Types Packs/Day Years Used Date Smoking Tobacco: Never Assessed Sex and Gender Information Value Date Recorded Sex Assigned at Not on file Gender Identity Not on file Sexual Orientation Not on file documented as of this encounter Plan of Treatment Not on file documented as of this encounter Visit Diagnoses Not on filedocumented in this encounter
--- OUTSIDE RECORDS SUMMARY | 2024-11-29 10:30 | XMS_ITS | Encounter Summary ---
Author Organization [facility] Address [address] [place] [address] Phone Care Team Providers Care Hematology Nurse Name Role Phone Drew Reilly MD Primary Care Provider Encounter Details Date Type Department Care Team (Late st Contact Info) Description 04/29/2023 Telephone [facility] Surgery [address] [facility] 6th [place] [address] [place] [address] Jeanie Rodríguez Social History Tobacco Use Types Packs/Day Years Used Date Smoking Tobacco: Never Comments Unknown Sex and Gender Information Value Date Recorded Sex Assigned at Not on file 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 Per Cindy, can schedule 05/04 at 1:00pm or 06/04 at 11:15am. documented in this encounter Plan of Treatment Not on file documented as of this encounter Visit Diagnoses Not on filedocumented in this encounter Care Teams Hematology Nurse Relationship Specialty Start Date End Date Suhre, Christopher Robbin, MD PCP - General Pediatrics 01/07/23 documented as of this encounter
--- OUTSIDE RECORDS SUMMARY | 2024-11-29 10:30 | XMS_ITS | Encounter Summary ---
Author Organization [facility] Address [address] [place] [address] Phone Care Team Providers Care Perinatal Coordinator Name Role Phone Drew Reilly MD Primary Care Provider Encounter Details Date Type Department Care Team (Late st Contact Info) Description 08/16/2023 Orders Only JIMENEZ PA OUTREACH [address] [place] [address] Bailey De La Torre, AGNES [address] [place] [address] Keloid Social History Tobacco Use Types Packs/Day Years Used Date Smoking Tobacco: Never Comments Unknown Sex and Gender Information Value Date Recorded Sex Assigned at Not on file 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 Gender Identity Not on file Sexual Orientation Not on file documented as of this encounter Plan of Treatment Not on file documented as of this encounter Procedures Procedure Name Priority Date/Time Associated Diagnosis Comments SURGICAL PATHOLOGY Routine 08/13/2023 12 :00 AM CDT Keloid documented in this encounter Results * Surgical pathology (08/13/2023 12:00 AM CDT) Tissue (Skin, excision) 08/13/2023 08/16/2023 9:46 AM CDT [facility] - 08/18/2023 3:08 PM CDT EPIC results best viewed via link to PDF [facility] [address] [place] [address]., ??[place] [address] ? [email or web address] Note to Patients: ??This report may contain [...] ? REPORTED: ??08/18/2023 ? Submitting Physician Information: Bailey De La Torre, [facility] [address] ??[address] , ? DERMATOPATHOLOGY REPORT RESULTS ?? DIAGNOSIS: [...] ICD-9 A; ZSD.902 ? Clerical Data A; 67508 The Characteristics of some immunohistochemical and immunofluorescence stains as well as in-situ hybridization tests were determined by the [facility]ermat[facility] in ongoing quality assurance practice manager and in compliance with regulations drawn from the Clinical Laboratory Improvement Act of 1988 (CLIA '88). These tests may rely on the use of analyte specific reagents that are subject to specific labeling requirements by the US FDA, and may only be performed in a facility that is certified by the [facility] as a high-complexity laboratory under CLIA '88. ??These tests are used for clinical purposes and are not investigational. ??For lab developed tests, the validation has been reviewed; the performance is considered acceptable for patient testing. Bailey De La Torre AUDIOMETRIC TECHNICIAN LAB PATHOLOGY ORDERABLE S Final Result [facility] C[facility] [address] [place] [address] documented in this encounter Visit Diagnoses Diagnosis Keloid Keloid scar documented in this encounter Care Teams Perinatal Coordinator Relationship Specialty Start Date End Date Drew Reilly MD PCP - General Pediatrics 01/07/23 documented as of this encounter
--- OUTSIDE RECORDS SUMMARY | 2024-11-29 11:08 | XMS_ITS | Encounter Summary ---
Author Organization [facility] Address [address] [place] [address] Phone Care Team Providers Care Nuclear Physics Teacher Name Role Phone Drew Reilly MD Primary Care Provider Encounter Details Date Type Department Care Team (Late st Contact Info) Description 05/04/2023 Telephone [facility] Surgery [address] [facility] 6th [place] [address] [place] [address] Jeanie Rodríguez Social History Tobacco Use Types Packs/Day Years Used Date Smoking Tobacco: Never Comments Unknown Sex and Gender Information Value Date Recorded Sex Assigned at Not on file Legal 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
--- OUTSIDE RECORDS SUMMARY | 2024-11-29 11:08 | XMS_ITS | Encounter Summary ---
Author Organization [facility] Address [address] [place] [address] Phone Care Team Providers Care Hotel Front Desk Clerk Name Role Phone Drew Reilly MD Primary Care Provider Encounter Details Date Type Department Care Team (Late st Contact Info) Description 08/16/2023 Orders Only JIMENEZ PA OUTREACH [address] [place] [address] Baiely De La Torre, AGNES [address] [place] [address] Keloid Social History Tobacco Use Types Packs/Day Years Used Date Smoking Tobacco: Never Comments Unknown Sex and Gender Information Value Date Recorded Sex Assigned at Not on file 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 Gender Identity Not on file Sexual Orientation Not on file documented as of this encounter Plan of Treatment Not on file documented as of this encounter Procedures Procedure Name Priority Date/Time Associated Diagnosis Comments SURGICAL PATHOLOGY Routine 08/13/2023 12 :00 AM CDT Keloid documented in this encounter Results * Surgical pathology (08/13/2023 12:00 AM CDT) Tissue (Skin, excision) 08/13/2023 08/16/2023 9:46 AM CDT [facility]MATOP[facility]Y [facility] - 08/18/2023 3:08 PM CDT EPIC results best viewed via link to PDF [facility]ermat[facility] [address] [place] [address]., ??[place] [address] ? [email or web address] Note to Patients: ??This report may contain [...] Submitting Physician Information: Bailey De La Torre, [facility] [address] ??[address] , ? DERMATOPATHOLOGY REPORT RESULTS ?? DIAGNOSIS: [...] ICD-9 A; ZSD.902 ? Clerical Data A; 61738 The Characteristics of some immunohistochemical and immunofluorescence stains as well as in-situ hybridization tests were determined by the [facility] Dermatopathology Center in ongoing quality improvement engineer and in compliance with regulations drawn from the Clinical Laboratory Improvement Act of 1988 (CLIA '88). These tests may rely on the use of analyte specific reagents that are subject to specific labeling requirements by the US FDA, and may only be performed in a facility that is certified by the [facility] as a high-complexity laboratory under CLIA '88. ??These tests are used for clinical purposes and are not investigational. ??For lab developed tests, the validation has been reviewed; the performance is considered acceptable for patient testing. Bailey De La Torre DYED RAW STOCK BLOWER FEEDER LAB PATHOLOGY ORDERABLE S Final Result [facility]Y CENTER [address] [place] [address] documented in this encounter Visit Diagnoses Diagnosis Keloid Keloid scar documented in this encounter Care Teams Hotel Front Desk Clerk Relationship Specialty Start Date End Date Drew Reilly MD PCP - General Pediatrics 01/07/23 documented as of this encounter
--- OUTSIDE RECORDS SUMMARY | 2024-11-29 11:08 | XMS_ITS | Encounter Summary ---
Author Organization [facility] Address [address] [place] [address] Phone Care Team Providers Care Ribbon Lapper Tender Name Role Phone Drew Reilly MD Primary Care Provider Encounter Details Date Type Department Care Team (Late st Contact Info) Description 04/29/2023 Telephone [facility] Surgery [address] 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
--- OUTSIDE RECORDS SUMMARY | 2024-11-29 11:08 | XMS_ITS | Encounter Summary ---
Author Organization [facility] Address [address] [place] [address] Care Team Providers Care Cdl B Driver Name Role Phone Brigid Woods APRN-PATIENT SUPPORT ASSOCIATE Unavailable Reason for Visit * Reason Comments Establish Care Encounter Details Date Type Department Care Team (Late st Contact Info) Description 03/15/2023 11:00 AM CDT Office Visit [facility] - Surgery [address] [place] [address] Catina Poon MD [address] [facility] [address] [place], [place] [id number] Mass of upper outer quadrant of left [...] arm thinking this might be hormone related. DIESEL LOCOMOTIVE ENGINEER dianne acevedo, [facility] Warm/tender touch She has no previous history of any breast biopsies or breast surgeries. Imagin01/21/23 Left breast complete ultrasound at [facility] in [place], [place]. Findings-no suspicious mass or shadowing is detected. No cyst identified. Vesuirptlo-LU-RISO category 1-negative Breast Cancer Risk Assessment and Family Cancer History: Calculated 03/14/2023 using HOLISTIC NUTRITIONIST Risk Assessment Program Family History Problem Relation [...] mastopathy documented in this encounter Care Teams Cdl B Driver Relationship Specialty Start Date End Date Brigid Woods, PERSONAL FINANCIAL REPRESENTATIVE-PATIENT SUPPORT ASSOCIATE [address] [place] [address] Nurse Practitioner 03/12/23 documented as of this encounter
--- OUTSIDE RECORDS SUMMARY | 2024-11-29 11:08 | XMS_ITS | Encounter Summary ---
Author Organization [facility] Address [address] [facility] [place] [address] Care Team Providers Care Electron Beam Photo Mask Technician Name Role Phone Drew Reilly MD Primary Care Provider [phone] Reason for Visit * Reason Comments Complete Physical Exam Dizziness X 5-6 times daily in past 1 week; lasts about 20 seconds, head hurts, & eyes see spots ; then all S/S go away Encounter Details Date Type Department Care Team (Late st Contact Info) Description 07/19/2014 10:30 AM CDT Office Visit [facility] - Pediatrics [address] [place] [phone] Drew Reilly MD [address] [place] [address] [place] [phone] WCC (well child check) (Primary Dx); Orthostatic [...] is 20.15 kg/(m^2). 79%ile (Z=0.82) based on [facility] 2-20 Years BMI-for-age data using vitals from 07/19/2014. 86%ile (Z=1.07) based on [facility] 2-20 Years pzludj-emw-tzj data using vitals from 07/19/2014. 90%ile (Z=1.27) based on CDC 2-20 Years evsjhgo-oix-tgg data using vitals from 07/19/2014. IMMUNIZATIONS At [...] machinery. Plan to ride with a designated refuse driver or to call for a ride [...] and regular physical ac tivity. ORAL HEALTH: [place] your teeth twice a day with a [...] normal, but having sex should be a netb-jdwwszf-ooz decision. Delay having sex until you and [...] those for curfews or driving. Share in director of teacher education. Learn about how you can take on [...] PROMOTION OF COMMUNITY INTERACTION: Participate in social, muslim, cultural, volunteer or recreational activities. Advocate for [...] a TV or computer in your room. www.Nanosolar: A great site for older teens that includes ways to communicate with peers when they experience online bullying that is not cool . www.wiredkids.org: A site for younger and older teens, as well as parents, with many suggestions oninternet safety www.Fortify Softwaretz.org: A site presented by the National Center for Missing and Exploited Children with information for kids, teens and parents, much of it focused on avoiding cyber bullying. documented in this encounter Progress Notes * Drew Reilly MD - 07/19/2014 11:01 AM CDT Mother states she has received vaccines, but refusing any further vaccines. [facility] Nurse Note Parental Concerns: pt develops dizzy [...] 86%ile (Z=1.07) based on CDC 2-20 Years kgzjlc-qbw-thr data using vitals from 07/19/2014. 90%ile (Z=1.27) based on CDC 2-20 Years xuqfplo-ank-jsz data using vitals from 07/19/2014. BP 112/65 [...] hypotension documented in this encounter Care Teams Electron Beam Photo Mask Technician Relationship Specialty Start Date End Date Drew Reilly MD [address] [place] [address] [place] [phone] PCP - General 12/03/09 02/11/15 documented as of this encounter
--- OUTSIDE RECORDS SUMMARY | 2024-11-29 11:08 | XMS_ITS | Encounter Summary ---
Author Organization [facility] Address [address] [place] [place] [address] Care Team Providers Care Hvac Project Engineer Name Role Phone Unavailable Primary Care Provider Unavailabl e Encounter Details Date Type Department Care Team (Late st Contact Info) Description 11/28/2009 12:04 PM V BELT FINISHER - 11/28/2009 12:05 PM [facility] Hospital Encounter Donna Macias, DIESEL POWER MECHANIC-TREATING INSPECTOR [address] [place] [address] Medical Inpatient Social History Tobacco Use Types [...]
--- OUTSIDE RECORDS SUMMARY | 2024-11-29 11:08 | XMS_ITS | Clinical Summary ---
Author Organization [facility] Address [address] [place] [address] Care Team Providers Care Director Of Media Name Role Phone Drew Reilly MD Primary [...] on file Legal Sex Female 9:22 AM NURSERY WORKER Gender Identity Not on file Sexual Orientation Not on file Obstetrics History Last Filed Vital Signs Vital Sign Reading Time Taken Comments Blood Pressure 112/78 12/22/2012 9:30 AM NURSERY WORKER Pulse - - Temperature - - Respiratory Rate - - Oxygen Saturation - - Inhaled Oxygen Concentration - - Weight 43.1 kg (94 lb 15.9 oz) 12/22/2012 9:30 A M NURSERY WORKER Height 144.8 cm (4' 9 ) 12/22/2012 9:30 AM NURSERY WORKER Body Mass Index 20.56 12/22/2012 9:30 AM NURSERY WORKER Plan of Treatment Health Maintenance Due Date [...] patient's age to complete this topic Insurance [facility] Care Teams Director Of Media Relationship Specialty Start Date End Date Drew Reilly MD PCP - General Pediatrics 01/07/23
--- OUTSIDE RECORDS SUMMARY | 2024-11-29 11:08 | XMS_ITS | Encounter Summary ---
Author Organization [facility] Address [address] [facility] [place] [address] Care Team Providers Care Spreader Name Role Phone Drew Reilly MD Primary Care Provider [phone] Reason for Visit * Reason Comments Cough deep cough x 5 days. Nonproductive. No nasal complaints. No fever. Encounter Details Date Type Department Care Team ([facility] Contact Info) Description 11/13/2014 1:00 PM BAR TURNER Office Visit [facility] - Pediatrics [address] [place] [phone] Drew Reilly MD [address] [phone] URI (upper respiratory infection) (Primary Dx) Social [...] 37 ??C (98.6 ??F) 11/13/2014 1:25 PM BAR TURNER Respiratory Rate - - Oxygen Saturation - - Inhaled Oxygen Concentration - - Weight 51.2 kg (112 lb 12.8 oz) 11/13/2014 1:25 PM BAR TURNER Height 156.8 cm (5' 1.75 ) 11/13/2014 1:25 PM CS T Body Mass Index 20.8 11/13/2014 1:25 PM BAR TURNER Body Mass Index Percentile 82.09% 11/13/2014 1:2 5 PM BAR TURNER Growth Chart: [facility] (Girls, 2- 20 Years) documented in this [...] ??? azithromycin (ZITHROMAX) 200 MG/5ML SUSR suspension TURNER documented in this encounter Plan of Treatment Not on file documented as of this encounter Visit Diagnoses Diagnosis URI (upper respiratory infection)- Primary Acute upper respiratory infections of unspecified site documented in this encounter Care Teams Spreader Relationship Specialty Start Date End Date Drew Reilly MD [address] [place], [place] [phone] PCP - General 12/03/09 02/11/15 documented as of this encounter
--- OUTSIDE RECORDS SUMMARY | 2024-11-29 11:08 | XMS_ITS | Referral Summary ---
Author Organization [facility] Address [address] [place] [address] Care Team Providers Care Transfer Specialist Name Role Phone Brigid Woods BINDERY MANAGER-HEARING THERAPY TEACHER Unavailable Source Comments [facility],non-owned Affiliates and Associated Physician Practices is amultiple site organization consisting of ambulatory clinics and hospital sitesin [place], [place], [place] and [place]. This disclosure is being madepursuant to the Care Everywhere program and may not contain all information available regarding this patient. Last updated 18.[facility] Allergies No known active allergies Medications * [...] AM CDT) Beth Patel, MARILYN Care Teams Transfer Specialist Relationship Specialty Start Date End Date Brigid Woods, BINDERY MANAGER-HEARING THERAPY TEACHER [address] [place] [address] Nurse Practitioner 03/12/23
--- OUTSIDE RECORDS SUMMARY | 2024-11-29 11:08 | XMS_ITS | Encounter Summary ---
Author Organization [facility] Address [address] [place] [address] Care Team Providers Care Project Management It Specialist Name Role Phone Philomena Granados MD Primary Care Provider [phone] Reason for Visit * Reason Comments Sore Throat sore throat and naus ea x 2 days. No headache. No fever. No uri s/s. Encounter Details Date Type Department Care Team (Late st Contact Info) Description 02/12/2015 10:30 AM CDT Office Visit [facility] - Pediatrics [address] [place] [phone] Philomena Granados MD [address] [place] [phone] Pharyngitis, acute (Primary Dx) Social History [...] 83.74% 02/12 10:39 AM CDT Growth Chart: [facility] (Girls, 2- 20 Years) documented in this [...] pharyngitis documented in this encounter Care Teams Project Management It Specialist Relationship Specialty Start Date End Date Philomena Granados MD PCP - General Pediatrics 02/12/15 01/03/18 documented as of this encounter
--- OUTSIDE RECORDS SUMMARY | 2024-11-29 11:08 | XMS_ITS | Encounter Summary ---
Author Organization [facility] Address [address] [place] [address] Phone Care Team Providers Care Disk Sander Name Role Phone Drew Reilly MD Primary Care Provider Reason for Visit * Consultation (Routine) - Closed Specialty Diagnoses / Procedures Referred By Jonathan robledo Referred To Contact Plastic Surgery Diagnoses Drew Dodge MD Phone: tel: fax: [facility] (All Locations) Referral ID Status Reason Start Date Expiration Date V isits Requested Visits Authorized [id number] Closed Specialty Services Required 01/07/2023 02/06/2024 99 99 Encounter Details Date Type Department Care Team (Latest Contact Info) Description 08/13/2023 9:00 AM CDT Procedure visit [facility] Surgery [address] [facility] 6th [place] [address] [place] [address] Bailey De La Torre, AGNES [address] [place] [address] Jayden (Primary Dx) Social History Tobacco Use Types Packs/Day Years Used Date Smoking Tobacco: Never Comments Unknown Sex and Gender Information Value Date Recorded Sex Assigned at Not on file Legal Sex Female 9:22 AM HYGIENE ASSISTANT Gender Identity Not on file Sexual Orientation Not on file documented as of this encounter Progress Notes * Bailey De La Torre NP - 08/13/2023 9:00 AM CDT PLASTIC & RECONSTRUCTIVE SURGERY PROCEDURE NOTE PATIENT NAME: Katya Sorenson Date of : 2005 DATE OF PROCEDURE: 08/13/23 [facility] NURSE: Jennifer Rader RN PREOPERATIVE DIAGNOSIS: Lesion [...] (Skin, excision) 08/13/2023 08/16/2023 9:46 AM CDT [facility] DERMATOPATHOLOGY CENTER - 08/18/2023 3:08 PM CDT [facility] results best viewed via link to PDF [facility] Dermatopathology Center [address] [place] [address] , ??[place] [address] ? [email or web address] Note to Patients: ??This report may [...] ? Submitting Physician Information: ANA Myers [address] ??[address] , ? DERMATOPATHOLOGY REPORT RESULTS ?? DIAGNOSIS: [...] ICD-9 A; ZSD.902 ? Clerical Data A; 81227 The Characteristics of some immunohistochemical and immunofluorescence stains as well as in-situ hybridization tests were determined by the [facility] Dermatopathology Center in ongoing manufacturing quality engineer and in compliance with regulations drawn from the Clinical Laboratory Improvement Act of 1988 (CLIA '88). These tests may rely on the use of analyte specific reagents that are subject to specific labeling requirements by the US FDA, and may only be performed in a facility that is certified by the [facility] as a high-complexity laboratory under CLIA '88. ??These tests are used for clinical purposes and are not investigational. ??For lab developed tests, the validation has been reviewed; the performance is considered acceptable for patient testing. 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
--- OUTSIDE RECORDS SUMMARY | 2024-11-29 11:08 | XMS_ITS | Encounter Summary ---
Author Organization [facility] Address [address] [facility] [place] [address] Care Team Providers Care Hotel Controller Name Role Phone Drew Reilly MD Primary Care Provider [phone] Reason for Visit * Reason Onset Date Comments Question 09/21/2014 Encounter Details Date Type Department Care Team (Late st Contact Info) Description 09/21/2014 Telephone [facility] Medical [facility] - Pediatrics [address] [place] [address] [address] [place] [address] Drew Reilly MD [address] [place] [phone] Question Social History Tobacco Use Types Packs/Day [...] on filedocumented in this encounter Care Teams Hotel Controller Relationship Specialty Start Date End Date Drew Reilly MD [address] [place], [place] [phone] PCP - General 12/03/09 02/11/15 documented as of this encounter
--- OUTSIDE RECORDS SUMMARY | 2024-11-29 11:08 | XMS_ITS | Referral Summary ---
Author Organization [facility] Address [facility] [place] [address] Care Team Providers Care Horticulture Professor Name Role Phone Drew Reilly MD Primary [...] on file Legal Sex Female 9:22 AM TOOL GRINDER SET UP OPERATOR GEAR Gender Identity Not on file Sexual Orientation Not on file Last Filed Vital Signs Vital Sign Reading Time Taken Comments Blood Pressure 112/78 12/22/2012 9:30 AM TOOL GRINDER SET UP OPERATOR GEAR Pulse - - Temperature - - Respiratory Rate - - Oxygen Saturation - - Inhaled Oxygen Concentration - - Weight 43.1 kg (94 lb 15.9 oz) 12/22/2012 9:30 A M TOOL GRINDER SET UP OPERATOR GEAR Height 144.8 cm (4' 9 ) 12/22/2012 9:30 AM TOOL GRINDER SET UP OPERATOR GEAR Body Mass Index 20.56 12/22/2012 9:30 AM TOOL GRINDER SET UP OPERATOR GEAR Plan of Treatment Not on file Insurance [employer] Care Teams Horticulture Professor Relationship Specialty Start Date End Date Drew Reilly MD PCP - General Pediatrics 01/07/23
--- OUTSIDE RECORDS SUMMARY | 2024-11-29 11:08 | XMS_ITS | Patient Health Summary ---
Author Organization [facility] Address [address] [place] [address] Care Team Providers Care Line Cook Name Role Phone Brigid Woods ICE CRUSHER-CHILD ADOLESCENT PSYCHIATRIST Unavailable Note from [facility] [place]non-owned Affiliates and Associated Physician Practices is amultiple site organization consisting of ambulatory clinics and hospital sitesin [place], [place], [place] and [place]. This disclosure is being madepursuant to the Care Everywhere program and may not contain all information available regarding this patient. Last updated 18.[facility] Allergies No known active allergies Medications * [...] Ultrasound Scanned Document US ORDERABLES Care Teams Line Cook Relationship Specialty Start Date End Date Brigid Woods, ICE CRUSHER-CHILD ADOLESCENT PSYCHIATRIST [address] [place] [id number] Nurse Practitioner 03/12/23
--- OUTSIDE RECORDS SUMMARY | 2024-11-29 11:08 | XMS_ITS | Encounter Summary ---
Author Organization [facility] Address [address] [place] [address] Phone Care Team Providers Care Flour Blender Name Role Phone Drew Reilly MD Primary Care Provider Reason for Visit * Consultation (Routine) - Closed Specialty Diagnoses / Procedures Referred By Jonathan robledo Referred To Contact Plastic Surgery Diagnoses Drew Dodge MD Phone: tel: fax: [facility] (All Locations) Referral ID Status Reason Start Date Expiration Date V isits Requested Visits Authorized [id number] Closed Specialty Services Required 01/07/2023 02/06/2024 99 [phone] Encounter Details Date Type Department Care Team (Late st Contact Info) Description 04/23/2023 1:30 PM CDT Office Visit [facility] Surgery [address] [facility] 6th [place] [address] [place] [id number] Bailey De La Torre, AGNES [address] [place] [address] Jayden (Primary Dx) Social History Tobacco Use Types Packs/Day Years Used Date Smoking Tobacco: Never Tobacco Cessation:Counseling Given: Not Answered Comments Unknown Sex and Gender Information Value Date Recorded Sex Assigned at Not on file Legal Sex Female 9:22 AM ASSISTANT BANQUET MANAGER Gender Identity Not on file Sexual Orientation Not on file documented as of this encounter Progress Notes * Bailey De La Torre, [employer] - 04/23/2023 1:30 PM CDT Images from [...] 3 documented in this encounter Care Teams Flour Blender Relationship Specialty Start Date End Date Drew Reilly MD PCP - General Pediatrics 01/07/23 documented as of this encounter
--- OUTSIDE RECORDS SUMMARY | 2024-11-29 11:08 | XMS_ITS | Clinical Summary ---
Author Organization [facility] [employer] Address [address] [place] [address] Care Team Providers Care Hris Administrator Name Role Phone Brigid Woods ASSISTANT ASSOCIATE PROFESSOR-DELIVERY ANALYST Unavailable Source Comments [facility],non-owned Affiliates and Associated Physician Practices is amultiple site organization consisting of ambulatory clinics and hospital sitesin [place], [place], [place] and [place]. This disclosure is being madepursuant to the Care Everywhere program and may not contain all information available regarding this patient. Last updated 18.[facility] [employer] Allergies No known active allergies Medications * [...] CDT) No Beth Kelley, MARILYN Care Teams Hris Administrator Relationship Specialty Start Date End Date Brigid Woods, ASSISTANT ASSOCIATE PROFESSOR-DELIVERY ANALYST [address] [place] [address] Nurse Practitioner 03/12/23
== END 2024-11-22 13:59 | disposition left against medical advice (07) ==
PROVIDERS: PCP Nurse Practitioner Obstetrics & Gynecology
DX: R11.2 Nausea with vomiting, unspecified (principal)
CPT/HCPCS: 99199